=== PATIENT | female | born 1930 | race Caucasian/White ===

== ENCOUNTER 2016-12-24 18:04 | Inpatient (IN) | payer MEDICARE, MEDICAID ==
[~2016-12-24] VITALS: Ht 152.4 cm; Wt 68.2 kg
[~2016-12-24 18:04] MED LIST: ADV10050 INH; AMLO5TAB4 PO; ASPI-465 PO; ATEN50TA PO; BISA-57 PO; DOCU-144 PO; ERGO500014 PO; FLUT16SP24 NASAL; HYDR-3498 PO; MECL-77 PO; OLME40TA14 PO; ONDA4TAB8 PO; PANT40TA3 PO; PREG50CA PO; SENN-36 PO; TRAM-40 PO; ZOLP10TA PO
[2016-12-24 18:20] VITALS: Ht 152.4 cm; Wt 68.2 kg
[2016-12-24] MEDS ORDERED: morphine 4 MG/ML VIAL IV STA (18:21)
[2016-12-24] MEDS ORDERED: ONDANSETRON 4 MG INJ IV STA (18:21)
[2016-12-24] MEDS ORDERED: FURO40TA4 PO (18:39)
[2016-12-24] MEDS ORDERED: PANT40TA4 PO (18:39)
[2016-12-24] MEDS ORDERED: CELE200C PO (18:40)
[2016-12-24] MEDS ORDERED: HYDR-906 PO (18:40)
[2016-12-24] MEDS ORDERED: IRBE150T21 PO (18:40)
[2016-12-24] MEDS ORDERED: CLON-379 PO (18:41)
[2016-12-24] MEDS ORDERED: PREG50CA PO (18:41)
[2016-12-24] MEDS ORDERED: ZOLP10TA5 PO (18:42)
[2016-12-24] MEDS ORDERED: MECL-77 PO (18:42)
[2016-12-24] MEDS ORDERED: MAXZ25 PO (18:43)
[2016-12-24] MEDS ORDERED: ERGO500037 PO (18:43)
[2016-12-24] MEDS ORDERED: ATEN50TA PO (18:44)
[2016-12-24] MEDS ORDERED: ASPI-664 PO (18:44)
[2016-12-24 19:00] LABS: ADD SCAN DIFF NO
[2016-12-24 19:05] LABS: BASOPHILS % 0.7 % (0.0-2.0); EOSINOPHILS # 0.1 10^3/ul (0.0-0.5); EOSINOPHILS % 1.5 % (0.0-7.0); HEMATOCRIT 28.7 % (37.0-47.0); LYMPHOCYTES # 1.1 10^3/ul (0.8-2.9); MEAN CORPUSCULAR HEMOGLOBIN 30.9 pg (29.0-33.0); MEAN CORPUSCULAR HGB CONC 34.8 g/dl (32.0-37.0); MEAN CORPUSCULAR VOLUME 88.6 fl (82.0-101.0); MEAN PLATELET VOLUME 10.4 fl (7.4-10.4); MONOCYTE # 0.6 10^3/ul (0.3-0.9); MONOCYTES % 10.3 % (0.0-11.0); NEUTROPHILS % 68.3 % (39.0-77.0); PLATELET COUNT 201 10^3/UL (140-415); RED BLOOD COUNT 3.24 10^6/ul (4.20-5.40); RED CELL DISTRIBUTION WIDTH 11.6 % (11.5-14.5); WHITE BLOOD COUNT 5.8 10^3/ul (4.8-10.8)
[2016-12-24 19:16] LABS: POTASSIUM 4.2 mmol/L (3.5-5.1)
[2016-12-24 19:18] LABS: CREATININE 1.29 mg/dl (0.44-1.00)
[2016-12-24 19:19] LABS: ALBUMIN/GLOBULIN RATIO 1.29; BILIRUBIN,INDIRECT 0.4 mg/dl (0-1.1); BILIRUBIN,TOTAL 0.4 mg/dl (0.2-1.3); CALCIUM 9.2 mg/dl (8.4-10.2); TOTAL PROTEIN 7.1 g/dl (6.1-8.1)
[2016-12-24 20:05] LABS: ADD UMIC NO; URINE BILIRUBIN (Dip) NEGATIVE (NEGATIVE); URINE BLOOD (Dip) NEGATIVE (NEGATIVE); URINE COLOR LT. YELLOW (YELLOW); URINE GLUCOSE (Dip) NEGATIVE (NEGATIVE); URINE KETONES (Dip) NEGATIVE (NEGATIVE); URINE LEUKOCYTE ESTERASE (Dip) NEGATIVE (NEGATIVE); URINE NITRITE (Dip) NEGATIVE (NEGATIVE); URINE TOTAL PROTEIN (Dip) NEGATIVE (NEGATIVE); URINE UROBILINOGEN (Dip) 0.2 E.U./dL (0.1-1.0)
--- NOTE | 2016-12-24 20:30 | RADRPT ---
PROCEDURE: CT of the lower extremity without contrast CLINICAL INDICATION: Left hip pain. TECHNIQUE: CT of the left hip is performed from the anterior superior iliac spine through the mid femoral shaft at 2.5 mm sections without intravenous contrast. Coronal and sagittal reformatted val ges are submitted. CTDI = 18.36 mGy; DLP = 556.65 mGy-cm COMPARISON: None available FINDINGS: Osseous structures: Bone mineralization is decreased concerning for osteoporosis. There is no christiano ical irregularity or abnormal lucency to suggest an acute displaced fracture. Moderate narrowing of the superior aspect of the left hip joint is present consistent with osteoarthrosis with a somewhat osteophyte formation of the superior lateral left acetabulum. The femoral head is normal in contou r without avascular necrosis, erosion or subluxation. The visualized pubic symphysis shows mild chr onic-appearing osteitis pubis. Soft tissues: The colon 5 musculature is within limits of normal, no intramuscular hematoma is pres ent. The subcutaneous tissues are unremarkable. No joint effusion is identified. The visualized i ntrapelvic structures are remarkable for uterine atrophy, the urinary bladder is unremarkable. Mild atherosclerotic calcification of the common femoral artery is present. RPTAT:HJJR IMPRESSION: 1. No evidence of fracture or dislocation involving the left hip. 2. Moderate left hip osteoarthrosis. 3. Demineralization unable to exclude osteoporosis. 4. Mild chronic-appearing osteitis pubis. 5. No soft tissue abnormality identified. Physician Chavo Date Time Electronically viewed and signed by Physician Chavo on 12/24/2016 20:30 /
[2016-12-24] MEDS ORDERED: SOD CHLORIDE 0.45% 1,000 ML IV SCH (21:12)
--- NOTE | 2016-12-24 21:24 | ERA ---
ER Documentation Chief Complaint Date/Time DATE: 12/24/16 TIME: 21:23 Chief Complaint BIB [facility] FOR EVAL OF LOWER BACK PAIN. HPI 83-year-old female with history of hypertension, asthma, osteoarthritis, hyponatremia, CHF, lumbar compression fracture and chronic pain brought to the ED via rescue and was home complaining of a three-week history of worsening, sharp, nonradiating left hip pain exacerbated by movement. Pain is unrelieved by multiple analgesics including [place]. Denies new trauma or injury. No chest pain or palpitations. No shortness of breath or cough. Mild, crampy generalized , nonradiating abdominal pain and constipation but no nausea, vomiting or diarrhea. No dysuria, polyuria or flank pain. No headache, weakness, focal weakness or numbness. No fevers or chills. ROS All systems reviewed and are negative except as per history of present illness. Medications Home Meds Reported Medications Atenolol* (Atenolol*) 50 Mg Tablet, 50 MG PO DAILY, #30 TAB 12/24/16 Aspirin* (Aspirin* EC) 81 Mg Tablet.dr, 81 MG PO DAILY, TAB 12/24/16 Ergocalciferol (Vitamin D2) (VITAMIN D2) 50,000 Unit Capsule, 02417 UNIT PO Q7D , CAP 12/24/16 Triamterene/Hctz* (Maxzide (37.5-25)*) 1 Each Tablet, 1 EACH PO DAILY, #30 TAB 12/24/16 Meclizine Hcl* (Meclizine Hcl*) 25 Mg Tablet, 25 MG PO Q8H Y for DIZZINESS, TAB 12/24/16 Zolpidem Tartrate* (Zolpidem Tartrate*) 10 Mg Tablet, 10 MG PO QHS Y for INSOMNIA, #30 TAB 12/24/16 Clonidine Hcl* (Clonidine Hcl*) 0.1 Mg Tab, 0.1 MG PO BID, TAB 12/24/16 Pregabalin* (Lyrica*) 50 Mg Capsule, 50 MG PO BID, CAP 12/24/16 Hydrocodone/Acetaminophen (Amboy 5-325 Tablet) 1 Each Tablet, 1 EACH PO BID, TAB 12/24/16 Celecoxib* (Celebrex*) 200 Mg Capsule, 200 MG PO DAILY, CAP 12/24/16 Irbesartan* (Irbesartan*) 150 Mg Tablet, 150 MG PO DAILY, TAB 12/24/16 Pantoprazole* (Pantoprazole*) 40 Mg Tablet.dr, 40 MG PO AC BREAKFAST, TAB 12/24/16 Furosemide* (Furosemide*) 40 Mg Tablet, 40 MG PO DAILY, TAB 12/24/16 Discontinued Reported Medications Fluticasone Propionate* (Flonase* Nasal) 50 Mcg/[place] - 16 Gm [place].susp, 1 SPRAY NASAL BID QHS, SPRAY (TO EACH NOSTRIL) 06/06/14 Olmesartan Medoxomil (Benicar) 40 Mg Tablet, 40 MG PO DAILY, TAB 06/06/14 Ergocalciferol* (Drisdol* (Vitamin D2)) 50,000 Unit Capsule, 67059 UNIT PO Q7D, CAP 06/06/14 Ondansetron Hcl* (Zofran*) 4 Mg Tablet, 4 MG PO Q6H Y for NAUSEA, TAB 06/06/14 Pantoprazole* (Protonix*) 40 Mg Tablet.dr, 40 MG PO DAILY, TAB 06/06/14 Meclizine Hcl* (Meclizine Hcl*) 25 Mg Tablet, 25 MG PO TID, TAB 06/06/14 Pregabalin* (Lyrica*) 50 Mg Capsule, 50 MG PO BID, CAP 06/06/14 Hydrocodone Bit-Acetaminophen* (Amboy*) 5-325 Mg Tab, 1-2 TAB PO Q6 Y for PAIN, TAB 06/06/14 Tramadol Hcl* (Ultram*) 50 Mg Tablet, 50 MG PO Q6H Y for PAIN, TAB 06/06/14 Aspirin (Adult Low Dose Aspirin) 81 Mg Tablet.dr, 81 MG PO DAILY 02/07/12 Salmeterol Xinaf/Fluticasone* (Advair 100/50 Diskus*) 1 Inh Inha, 1 PUFF INH BID 02/07/12 Zolpidem Tartrate* (Ambien*) 10 Mg Tablet, 10 MG PO HS 02/07/12 Atenolol* (Atenolol*) 50 Mg Tablet, 50 MG PO DAILY 02/07/12 Discontinued Scripts Amlodipine Besylate* (Norvasc*) 5 Mg Tablet, 5 MG PO BID for 30 Days, TAB Prov:SUZI GARZA 06/11/14 Bisacodyl* (Dulcolax*) 5 Mg Tablet.dr, 10 MG PO DAILY Y for CONSTIPATION for 30 Days, TAB Prov:SUZI GARZA F. 06/11/14 Sennosides* (Senokot*) 1 Tab Tab, 2 TAB PO DAILY Y for CONSTIPATION for 30 Days Prov:SUZI GARZA. 06/11/14 Docusate Sodium* (Colace*) 100 Mg Cap, 100 MG PO Q12H for 30 Days Prov:SUZI GARZA F. 06/11/14 Allergies Allergies: Coded Allergies: No Known Allergy (Unverified , 12/24/16) PMhx/Soc Reviewed in chart. As per HPI. History of Surgery: Yes ((B) knee surg, nose sx) Anesthesia Reaction: No Hx Respiratory Disorders: Yes (ASTHMA) Hx Cardiac Disorders: No Hx Psychiatric Problems: No Hx Miscellaneous Medical Probl: Yes (asthma,HTN, L1 compression fracture) Hx Alcohol Use: No Hx Substance Use: No Hx Tobacco Use: Yes FmHx As per previous admission 06/06 2014 no stroke or cancer. Physical Exam Vitals Vital Signs Date Time Temp Pulse Resp B/P Pulse Ox O2 Delivery O2 Flow Rate FiO2 12/24/16 19:00 65 16 136/44 99 Room Air 12/24/16 18:20 97.5 74 19 143/54 99 Physical Exam Const: Alert, elderly in moderate to severe distress due to pain Head: Atraumatic Eyes: Normal Conjunctiva ENT: Normal External Ears, Nose and Mouth. Neck: Full range of motion. Nontender for range of motion. Resp: Breath sounds are equal and Clear to auscultation bilaterally Cardio: Regular rate and rhythm, no murmurs Abd: Soft, obese, non tender, non distended. Normal bowel sounds. No rebound or guarding. No masses or normal pulsations. Skin: No petechiae or rashes Back: Diffuse lumbar tenderness but no midline bony tenderness or step-off. No CVA tenderness Ext: Left lower extremity: Buttock and hip tenderness but no deformity. Passive range of motion is normal with pain. No knee or ankle swelling or tenderness. No cyanosis, or edema Neur: Awake and alert. Cranial nerves II through XII are grossly intact. No focal deficit observed. Psych: Patient appears anxious but not depressed. Result Diagram: 4/10/17 0610 12/26/16 0610 Results 24 hrs Laboratory Tests Test 12/24/16 18:55 12/24/16 19:40 White Blood Count 5.810^3/ul Red Blood Count 3.2410^6/ul Hemoglobin 10.0g/dl Hematocrit 28.7% Mean Corpuscular Volume 88.6fl Mean Corpuscular Hemoglobin 30.9pg Mean Corpuscular Hemoglobin Concent 34.8g/dl Red Cell Distribution Width 11.6% Platelet Count 60792^3/UL Mean Platelet Volume 10.4fl Neutrophils % 68.3% Lymphocytes % 19.0% Monocytes % 10.3% Eosinophils % 1.5% Basophils % 0.7% Nucleated Red Blood Cells % 0.0/100WBC Neutrophils # 4.010^3/ul Lymphocytes # 1.110^3/ul Monocytes # 0.610^3/ul Eosinophils # 0.110^3/ul Basophils # 0.010^3/ul Nucleated Red Blood Cells # 0.010^3/ul Sodium Level 118mmol/L Potassium Level 4.2mmol/L Chloride Level 82mmol/L Carbon Dioxide Level 24mmol/L Anion Gap 16 Blood Urea Nitrogen 35mg/dl Creatinine 1.29mg/dl Glucose Level 131mg/dl Osmolality 256mOsm/kg Calcium Level 9.2mg/dl Magnesium Level 2.4mg/dl Total Bilirubin 0.4mg/dl Direct Bilirubin 0.00mg/dl Indirect Bilirubin 0.4mg/dl Aspartate Amino Transf (AST/SGOT) 29IU/L Alanine Aminotransferase (ALT/SGPT) 17IU/L Alkaline Phosphatase 64IU/L Total Protein 7.1g/dl Albumin 4.0g/dl Globulin 3.10g/dl Albumin/Globulin Ratio 1.29 Urine Color LT. YELLOW Urine Clarity CLEAR Urine pH 5.5 Urine Specific [place] 1.010 Urine Ketones NEGATIVE Urine Nitrite NEGATIVE Urine Bilirubin NEGATIVE Urine Urobilinogen 0.2 E.U./dL Urine Leukocyte Esterase NEGATIVE Urine Hemoglobin NEGATIVE Urine Osmolality 248mOsm/kg Urine Random Sodium 25mmol/L Urine Glucose NEGATIVE% Urine Total Protein NEGATIVE Current Medications Medications (Trade) Dose Ordered Sig/Tanika Route PRN Reason Start Time Stop Time Status Last Admin Dose Admin Morphine Sulfate (morphine) 4 mg ONCE STAT IV 12/24/16 18:21 12/24/16 18:24 DC 12/24/16 19:04 Ondansetron HCl 4 mg 4 mg ONCE STAT IV 12/24/16 18:21 12/24/16 18:24 DC 12/24/16 19:04 Sodium Chloride (1/2 NS) 1,000 ml @ 60 mls/hr [id number] IV 12/24/16 21:12 12/25/16 13:15 DC 12/24/16 22:09 PROCEDURE: CT of the lower extremity without contrast CLINICAL INDICATION: Left hip pain. TECHNIQUE: CT of the left hip is performed from the anterior superior iliac spine through the mid femoral shaft at 2.5 mm sections without intravenous contrast. Coronal and sagittal reformatted images are submitted. CTDI = 18.36 mGy; DLP = 556.65 mGy-cm COMPARISON: None available FINDINGS: Osseous structures: Bone mineralization is decreased concerning for osteoporosis. There is no cortical irregularity or abnormal lucency to suggest an acute displaced fracture. Moderate narrowing of the superior aspect of the left hip joint is present consistent with osteoarthrosis with a somewhat osteophyte formation of the superior lateral left acetabulum. The femoral head is normal in contour without avascular necrosis, erosion or subluxation. The visualized pubic symphysis shows mild chronic-appearing osteitis pubis. Soft tissues: The colon 5 musculature is within limits of normal, no intramuscular hematoma is present. The subcutaneous tissues are unremarkable. No joint effusion is identified. The visualized intrapelvic structures are remarkable for uterine atrophy, the urinary bladder is unremarkable. Mild atherosclerotic calcification of the common femoral artery is present. RPTAT:HJJR IMPRESSION: 1. No evidence of fracture or dislocation involving the left hip. 2. Moderate left hip osteoarthrosis. 3. Demineralization unable to exclude osteoporosis. 4. Mild chronic-appearing osteitis pubis. 5. No soft tissue abnormality identified. Physician Chavo Date Time Electronically viewed and signed by Physician Chavo on 12/24/2016 20:30 JR/ Procedures/MDM DOCUMENTS REVIEWED: ED nurse, prior ED, prior records including an admission May 2014 history and physical, ED summary, progress notes and discharge summary. ED COURSE: Morphine 4 mg/Zofran 4 mg IV REEXAMINATION/REEVALUATION: Time: 19:20. Pain diminished but still severe with range of motion [employer]KIN-year-old female with history of hypertension, asthma, osteoarthritis, hyponatremia, CHF, lumbar compression fracture and chronic pain brought to the ED via rescue and was home complaining of a three- week history of worsening, sharp, nonradiating left hip pain exacerbated by movement. Patient with severe hyponatremia and sodium of 118 but no altered mental status or seizures. Hypertonic saline not indicated. History of same with extensive workup during an admission in May 2014 and was found to be due to dehydration improved with hydration. Urine sodium is pending. Fluid restriction and half normal saline at 60 mL per hour initiated. Chronic renal insufficiency with BUN/creatinine slightly worse in May 2014. Acute on chronic intractable left hip pain secondary to osteoarthritis. CT scan negative for occult fracture, occult malignancy or osteomyelitis. on CAT scan. Chronic back pain without neurologic symptoms, urinary disruption, signs of cauda equina or spinal epidural abscess. Chronic abdominal pain likely secondary to opioid induced constipation. No vomiting or signs of bowel obstruction. Exam is unremarkable for significant tenderness, rebound, guarding or signs of peritonitis. No risk factors for mesenteric ischemia. An occult malignancy is considered. Advanced imaging not indicated at this point. Patient will be admitted for pain control, fluid restriction, further evaluation and management. Counseled patient regarding diagnosis, diagnostic results and plan for admission. CALLS/CONSULTS: Time 21:00, Dr. Bonner, Recommends admission to [facility]. PATIENT CARE TRANSITIONED: Time: 21:00, Dr. Bonner. Departure Diagnosis: Primary Impression: Intractable pain Additional Impressions: Hyponatremia Osteoarthritis Qualified Code: M16.9 - Osteoarthritis of hip, unspecified laterality, unspecified osteoarthritis type Essential hypertension AISSATOU BAUM MD Dec 24, 2016 21:24 5. No soft tissue abnormality identified. Physician Chavo Date Time Electronically viewed and signed by Physician Chavo on 12/24/2016 20:30 JR/ Procedures/MDM DOCUMENTS REVIEWED: ED nurse, prior ED, prior records including an admission May 2014 history and physical, ED summary, progress notes and discharge summary. ED COURSE: Morphine 4 mg/Zofran 4 mg IV REEXAMINATION/REEVALUATION: Time: 19:20. Pain diminished but still severe with range of motion [employer] MAKIN-year-old female with history of hypertension, asthma, osteoarthritis, hyponatremia, CHF, lumbar compression fracture and chronic pain brought to the ED via rescue and was home complaining of a three- week history of worsening, sharp, nonradiating left hip pain exacerbated by movement. Patient with severe hyponatremia and sodium of 118 but no altered mental status or seizures. History of same with extensive workup during an admission in May 2014 and was found to be due to dehydration improved with hydration. Urine sodium is pending. Half normal saline at 60 mL per hour initiated. Chronic renal insufficiency with BUN/creatinine slightly worse in May 2014. Patient with acute on chronic intractable left hip pain secondary to osteoarthritis. No radiographic evidence of occult fracture on CAT scan. No signs of an occult malignancy or osteomyelitis. Chronic back pain without neurologic symptoms, urinary disruption, signs of cauda equina or spinal epidural abscess. Or evidence of cauda equina. Patient will be admitted for pain control, IV hydration, further evaluation and management. Counseled patient regarding diagnosis, diagnostic results and plan for admission. CALLS/CONSULTS: Time 21:00, Dr. Bonner, Recommends admission to [facility]. PATIENT CARE TRANSITIONED: Time: 21:00, Dr. Bonner. AISSATOU BAUM MD Dec 24, 2016 21:24
[2016-12-24] MEDS ORDERED: ACETAMINOPHEN 325 MG TAB PO PRN (21:30)
[2016-12-24] MEDS ORDERED: NACL 0.9% 3 ML SYG IV SCH (21:30)
[2016-12-24] MEDS ORDERED: NITROGLYCERIN (SL) 0.4 MG TAB SL PRN (21:30)
[2016-12-24] MEDS ORDERED: HYDROCODONE/APAP (5/325) TAB PO PRN (21:30)
--- NOTE | 2016-12-24 21:30 | HP ---
Date/Time of Note Date/Time of Note DATE: 12/24/16 TIME: 21:30 Assessment/Plan VTE Prophylaxis VTE Prophylaxis Intervention: anti-embolic stocking Assessment/Plan Assessment/Plan 1) Hyponatremia, unknown if acute or chronic, other than patient is not obtunded and able to speak normally and answers some questions. Patient with severe hyponatremia and sodium of 118 but no altered mental status or seizures. History of same, only Na+ ranged from 130 to 133, with extensive workup during an admission in May 2014 and was found to be due to dehydration improved with hydration. Urine sodium is pending - Admit to Med-Surg - Fluid Restriction to 1500 cc/day - Hold Triamterene/HCTZ (home medication) - /2 NS at 60 mL/hr - Check electrolytes at 2 am - Add onto current labs: Uric Acid, Pre-albumin - AM Labs: CBC, BMP, CHD profile - to check specifically for hyperlipidemia that may affect the sodium concentration - Consider Nephrology Consult 2) Pre-renal Azotemia, Chronic since 05/2014 and mild Renal Insufficiency, unknown if chronic or acute. No evidence of chronic renal insufficiency as her Creatinine was 0.80 in 01/2012 and 1.00 in 05/2014, and in that interval, her max creatinine was 1.52, and her BUN was 10 in 05/2012 to 15 in 05/2014, her last recorded BUN before today. - Gentle hydration as above 3) Abdominal Pain, possibly acute - KUB and Upright in AM - CALISTA done by me in ER, sent for Occult Blood, but no visible blood or melena - Try Magnesium Citrate once 2V Abdomen rules out acute process and confirms FOS 4) Chronic Pain with regular Opioid use, Hydrocodone-APAP 5-325 BID at home. Patient with acute on chronic intractable left hip pain secondary to osteoarthritis. No radiographic evidence of occult fracture on CAT scan. No signs of an occult malignancy or osteomyelitis. Chronic back pain without neurologic symptoms, urinary disruption, signs of cauda equina or spinal epidural abscess. Or evidence of cauda equina. - Consider constipation from chronic narcotic use. Small amount of stool that passed may be from soft/liquid that passed the constipated areas, but no significant stool in vault. 5) Anemia, Normochromic, Normocytic, Chronic. Normal RDW. - Consider getting a peripheral smear to look for abnormal cells. Thalassemia? but they tend to be microcytic/hypochromic but do not respond to iron - Stool Occult Blood Card sent to lab after CALISTA done by me. HPI/ROS Admit Date/Time Admit Date/Time 12/24/162111 Hx of Present Illness History as obtained from ER Physician: 83-year-old female with history of hypertension, asthma, osteoarthritis, hyponatremia, CHF, lumbar compression fracture and chronic pain brought to the ED via rescue and was home complaining of a three-week history of worsening, sharp, nonradiating left hip pain exacerbated by movement. Pain is unrelieved by multiple analgesics including [place]. Denies new trauma or injury. No chest pain or palpitations. No shortness of breath or cough. No abdominal pain, nausea, vomiting, diarrhea or constipation. No dysuria, polyuria or flank pain. No headache, weakness, focal weakness or numbness. No fevers or chills. However, when I speak to patient, she tells me about pain in her lower abdomen, and through [employer], live [employer], patient states that she wanted to have a BM today, but after just a little came out, it was very painful, and she had to stop. (It was difficult getting that history from her, meaning her answers to my questions were not this succinct.) She also indicated that it did not hurt her to urinate. Does not seem to be complaining of other pains. No cough. No headache. No vomiting. ED COURSE: Morphine 4 mg/Zofran 4 mg IV ROS Minimal ROS obtained directly from patient, partially due to language barrier, and partially due to dementia or confusion. See HPI for any additional ROS from family and/or EMS. PMH/Family/Social Past Medical History Asthma; HTN; L1 Compression Fracture; Osteoarthritis; Hyponatremia (drake 130, previously); CHF; Chronic Pain Past Surgical History Knee Surgery - bilateral; Nose Surgery Family History Significant Family History: other (As per previous admission 06/06 2014 no stroke or cancer.) Social History Smoking Status: Unknown if ever smoked Exam/Review of Systems Vital Signs Vitals Vital Signs Date Time Temp Pulse Resp B/P Pulse Ox O2 Delivery O2 Flow Rate FiO2 12/24/16 18:20 97.5 74 19 143/54 99 Exam Exam General: Elderly Slovenian-Speaking female who speaks/understands very little Pakistani, resting on gurney. Rouses easily. In no acute distress. Pale, but non- toxic-appearing Eyes: Sclera White, EOMI HENT: Normocephalic/Atraumatic, External Ears/Nose Normal, Moist Mucus Membranes Neck: Supple, Trachea Midline Cardiovascular: Normal Rate, Regular Rhythm, Normal S1 and S2, No Murmur, No Extra Sounds. Radial pulse +2/4. No pedal Edema. Pulmonary: Clear to Auscultation Bilaterally, Normal Respiratory Effort, No Rales, Rhonchi or Wheezes Gastrointestinal: Normoactive Bowel Sounds, Soft, Lower abdominal tenderness. No guarding or rebound. Non-Distended, No Hepatosplenomegaly Appreciated, No Pulsatile Masses. No CVA tenderness on left. Right was not examined as patient was laying on her right side, and her complaint of pain seemed to be on the left side, as well as in her lower abdomen. Rectal: CALISTA performed. Normal external anus. Good sphincter tone. No masses. No palpable stool in vault, but small amount of brown stool on glove sent to lab on card for occult blood test. Urogenital: Deferred Musculoskeletal: Normal Muscle Bulk and Tone Neurological: CN II - XII Grossly Intact, Non-Focal, Speech Normal Integumentary: Normal Moisture and Temperature, Fair Turgor, No Jaundice, No Rash Lymphatic: No Cervical Lymphadenopathy Psychiatric: Appropriate Mood and Affect, Good Eye Contact, but unable to assess further due to language barrier. Labs Result Diagram: 12/24/16185412/24/161854 Medications Medications Home Meds Reported Medications Atenolol* (Atenolol*) 50 Mg Tablet, 50 MG PO DAILY, #30 TAB 12/24/16 Aspirin* (Aspirin* EC) 81 Mg Tablet.dr, 81 MG PO DAILY, TAB 12/24/16 Ergocalciferol (Vitamin D2) (VITAMIN D2) 50,000 Unit Capsule, 23629 UNIT PO Q7D , CAP 12/24/16 Triamterene/Hctz* (Maxzide (37.5-25)*) 1 Each Tablet, 1 EACH PO DAILY, #30 TAB 12/24/16 Meclizine Hcl* (Meclizine Hcl*) 25 Mg Tablet, 25 MG PO Q8H Y for DIZZINESS, TAB 12/24/16 Zolpidem Tartrate* (Zolpidem Tartrate*) 10 Mg Tablet, 10 MG PO QHS Y for INSOMNIA, #30 TAB 12/24/16 Clonidine Hcl* (Clonidine Hcl*) 0.1 Mg Tab, 0.1 MG PO BID, TAB 12/24/16 Pregabalin* (Lyrica*) 50 Mg Capsule, 50 MG PO BID, CAP 12/24/16 Hydrocodone/Acetaminophen ([place] 5-325 Tablet) 1 Each Tablet, 1 EACH PO BID, TAB 12/24/16 Celecoxib* (Celebrex*) 200 Mg Capsule, 200 MG PO DAILY, CAP 12/24/16 Irbesartan* (Irbesartan*) 150 Mg Tablet, 150 MG PO DAILY, TAB 12/24/16 Pantoprazole* (Pantoprazole*) 40 Mg Tablet.dr, 40 MG PO AC BREAKFAST, TAB 12/24/16 Furosemide* (Furosemide*) 40 Mg Tablet, 40 MG PO DAILY, TAB 12/24/16 Discontinued Reported Medications Fluticasone Propionate* (Flonase* Nasal) 50 Mcg/Newell - 16 Gm Newell.susp, 1 SPRAY NASAL BID QHS, SPRAY (TO EACH NOSTRIL) 06/06/14 Olmesartan Medoxomil (Benicar) 40 Mg Tablet, 40 MG PO DAILY, TAB 06/06/14 Ergocalciferol* (Drisdol* (Vitamin D2)) 50,000 Unit Capsule, 57327 UNIT PO Q7D, CAP 06/06/14 Ondansetron Hcl* (Zofran*) 4 Mg Tablet, 4 MG PO Q6H Y for NAUSEA, TAB 06/06/14 Pantoprazole* (Protonix*) 40 Mg Tablet.dr, 40 MG PO DAILY, TAB 06/06/14 Meclizine Hcl* (Meclizine Hcl*) 25 Mg Tablet, 25 MG PO TID, TAB 06/06/14 Pregabalin* (Lyrica*) 50 Mg Capsule, 50 MG PO BID, CAP 06/06/14 Hydrocodone Bit-Acetaminophen* ([place]*) 5-325 Mg Tab, 1-2 TAB PO Q6 Y for PAIN, TAB 06/06/14 Tramadol Hcl* (Ultram*) 50 Mg Tablet, 50 MG PO Q6H Y for PAIN, TAB 06/06/14 Aspirin (Adult Low Dose Aspirin) 81 Mg Tablet.dr, 81 MG PO DAILY 02/07/12 Salmeterol Xinaf/Fluticasone* (Advair 100/50 Diskus*) 1 Inh Inha, 1 PUFF INH BID 02/07/12 Zolpidem Tartrate* (Ambien*) 10 Mg Tablet, 10 MG PO HS 02/07/12 Atenolol* (Atenolol*) 50 Mg Tablet, 50 MG PO DAILY 02/07/12 Discontinued Scripts Amlodipine Besylate* (Norvasc*) 5 Mg Tablet, 5 MG PO BID for 30 Days, TAB Prov:SUZI GARZA F. 06/11/14 Bisacodyl* (Dulcolax*) 5 Mg Tablet.dr, 10 MG PO DAILY Y for CONSTIPATION for 30 Days, TAB Prov:SUZI GARZA F. 06/11/14 Sennosides* (Senokot*) 1 Tab Tab, 2 TAB PO DAILY Y for CONSTIPATION for 30 Days Prov:SUZI GARZA F. 06/11/14 Docusate Sodium* (Colace*) 100 Mg Cap, 100 MG PO Q12H for 30 Days Prov:SUZI GARZA F. 06/11/14 Current Medications Medications (Trade) Dose Ordered Sig/Tanika Route PRN Reason Start Time Stop Time Status Last Admin Dose Admin Morphine Sulfate (morphine) 4 mg ONCE STAT IV 12/24/16 18:21 12/24/16 18:24 DC 12/24/16 19:04 Ondansetron HCl 4 mg 4 mg ONCE STAT IV 12/24/16 18:21 12/24/16 18:24 DC 12/24/16 19:04 Sodium Chloride (1/2 NS) 1,000 ml @ 60 mls/hr [id number] IV 12/24/16 21:12 IV Flush (NS 3 ml) 3 ml PER PROTOCOL IV 12/24/16 21:30 Nitroglycerin (Nitroglycerin (Sl Tab) 0.4 Mg) 1 tab Q5M PRN SL CHEST PAIN 12/24/16 21:30 Acetaminophen (Tylenol Tab) 650 mg Q6H PRN PO PAIN LEVEL 1-3 OR FEVER 12/24/16 21:30 Acetaminophen/ Hydrocodone Bitart ([place] (5/325)) 1 tab Q6H PRN PO PAIN LEVEL 4-6 12/24/16 21:30 Acetaminophen/ Hydrocodone Bitart ([place] (5/325)) 2 tab Q6H PRN PO PAIN LEVEL 7-10 12/24/16 21:30 Aspirin (Halfprin) 81 mg DAILY PO 12/25/16 09:00 Atenolol (Tenormin) 50 mg DAILY PO 12/25/16 09:00 Celecoxib (Celebrex) 200 mg DAILY PO 12/25/16 09:00 Clonidine (Catapres) 0.1 mg BID PO 12/24/16 21:30 Miscellaneous Information 150 mg DAILY PO 12/25/16 09:00 UNV Procedures Procedures Laboratory Tests Test 12/24/16 18:55 12/24/16 19:40 White Blood Count 5.810^3/ul Red Blood Count 3.2410^6/ul Hemoglobin 10.0g/dl Hematocrit 28.7% Mean Corpuscular Volume 88.6fl Mean Corpuscular Hemoglobin 30.9pg Mean Corpuscular Hemoglobin Concent 34.8g/dl Red Cell Distribution Width 11.6% Platelet Count 13495^3/UL Mean Platelet Volume 10.4fl Neutrophils % 68.3% Lymphocytes % 19.0% Monocytes % 10.3% Eosinophils % 1.5% Basophils % 0.7% Nucleated Red Blood Cells % 0.0/100WBC Neutrophils # 4.010^3/ul Lymphocytes # 1.110^3/ul Monocytes # 0.610^3/ul Eosinophils # 0.110^3/ul Basophils # 0.010^3/ul Nucleated Red Blood Cells # 0.010^3/ul Sodium Level 118mmol/L Potassium Level 4.2mmol/L Chloride Level 82mmol/L Carbon Dioxide Level 24mmol/L Anion Gap 16 Blood Urea Nitrogen 35mg/dl Creatinine 1.29mg/dl Glucose Level 131mg/dl Calcium Level 9.2mg/dl Total Bilirubin 0.4mg/dl Direct Bilirubin 0.00mg/dl Indirect Bilirubin 0.4mg/dl Aspartate Amino Transf (AST/SGOT) 29IU/L Alanine Aminotransferase (ALT/SGPT) 17IU/L Alkaline Phosphatase 64IU/L Total Protein 7.1g/dl Albumin 4.0g/dl Globulin 3.10g/dl Albumin/Globulin Ratio 1.29 Urine Color LT. YELLOW Urine Clarity CLEAR Urine pH 5.5 Urine Specific [place] 1.010 Urine Ketones NEGATIVE Urine Nitrite NEGATIVE Urine Bilirubin NEGATIVE Urine Urobilinogen 0.2 E.U./dL Urine Leukocyte Esterase NEGATIVE Urine Hemoglobin NEGATIVE Urine Random Sodium 25mmol/L Urine Glucose NEGATIVE% Urine Total Protein NEGATIVE PROCEDURE: CT of the lower extremity without contrast CLINICAL INDICATION: Left hip pain. COMPARISON: None available FINDINGS: Osseous structures: Bone mineralization is decreased concerning for osteoporosis. There is no cortical irregularity or abnormal lucency to suggest an acute displaced fracture. Moderate narrowing of the superior aspect of the left hip joint is present consistent with osteoarthrosis with a somewhat osteophyte formation of the superior lateral left acetabulum. The femoral head is normal in contour without avascular necrosis, erosion or subluxation. The visualized pubic symphysis shows mild chronic-appearing osteitis pubis. Soft tissues: The colon 5 musculature is within limits of normal, no intramuscular hematoma is present. The subcutaneous tissues are unremarkable. No joint effusion is identified. The visualized intrapelvic structures are remarkable for uterine atrophy, the urinary bladder is unremarkable. Mild atherosclerotic calcification of the common femoral artery is present. IMPRESSION: 1. No evidence of fracture or dislocation involving the left hip. 2. Moderate left hip osteoarthrosis. 3. Demineralization unable to exclude osteoporosis. 4. Mild chronic-appearing osteitis pubis. 5. No soft tissue abnormality identified. BREONNA UNDERWOOD DO Dec 24, 2016 21:30 is normal in contour without avascular necrosis, erosion or subluxation. The visualized pubic symphysis shows mild chronic-appearing osteitis pubis. Soft tissues: The colon 5 musculature is within limits of normal, no intramuscular hematoma is present. The subcutaneous tissues are unremarkable. No joint effusion is identified. The visualized intrapelvic structures are remarkable for uterine atrophy, the urinary bladder is unremarkable. Mild atherosclerotic calcification of the common femoral artery is present.
[2016-12-24 23:55] VITALS: TEMP 98
[2016-12-25] VITALS (10 sets, daily range): BP systolic 104–124; BP diastolic 49–62; PULSE 60–67; RESP 15–19
[2016-12-25 02:21] LABS: POTASSIUM 4.4 mmol/L (3.5-5.1)
[2016-12-25] MEDS ORDERED: ALBUTEROL 0.083% (NEB) 2.5 MG/3 ML AMP HHN PRN (05:00)
[2016-12-25 06:47] LABS: ADD SCAN DIFF NO; BASOPHIL # 0.1 10^3/ul (0.0-0.1); BASOPHILS % 0.9 % (0.0-2.0); EOSINOPHILS # 0.2 10^3/ul (0.0-0.5); EOSINOPHILS % 2.9 % (0.0-7.0); HEMATOCRIT 29.9 % (37.0-47.0); HEMOGLOBIN 10.3 g/dl (12.0-16.0); LYMPHOCYTES # 1.7 10^3/ul (0.8-2.9); LYMPHOCYTES % 31.6 % (15.0-51.0); MEAN CORPUSCULAR HEMOGLOBIN 31.1 pg (29.0-33.0); MEAN CORPUSCULAR HGB CONC 34.4 g/dl (32.0-37.0); MEAN CORPUSCULAR VOLUME 90.3 fl (82.0-101.0); MEAN PLATELET VOLUME 10.6 fl (7.4-10.4); MONOCYTE # 0.6 10^3/ul (0.3-0.9); MONOCYTES % 10.8 % (0.0-11.0); NEUTROPHIL # 2.9 10^3/ul (1.6-7.5); NEUTROPHILS % 53.4 % (39.0-77.0); PLATELET COUNT 187 10^3/UL (140-415); RED BLOOD COUNT 3.31 10^6/ul (4.20-5.40); RED CELL DISTRIBUTION WIDTH 11.6 % (11.5-14.5); WHITE BLOOD COUNT 5.5 10^3/ul (4.8-10.8)
[2016-12-25 06:57] LABS: POTASSIUM 3.9 mmol/L (3.5-5.1)
[2016-12-25 06:59] LABS: URIC ACID 7.5 mg/dl (3.1-7.9)
[2016-12-25 07:00] LABS: CHOL/HDL RATIO 2.6 RATIO
[2016-12-25 07:07] LABS: PREALBUMIN 17.7 mg/dl (17.6-36.0)
[2016-12-25 07:22] LABS: CALCIUM 8.8 mg/dl (8.4-10.2)
[2016-12-25] MEDS: ASPIRIN (EC) 81 MG TAB PO SCH (08:11)
[2016-12-25] MEDS: HYDROCODONE/APAP (5/325) TAB PO PRN ×2 (08:11→14:23)
[2016-12-25] MEDS: ALBUTEROL/IPRATROPIUM (NEB) 3 ML AMP HHN SCH ×3 (08:17→21:13)
[2016-12-25] MEDS ORDERED: NON-FORMULARY/PATIENT OWN MED (Irbesartan* 150 MG) PO SCH (09:00)
[2016-12-25] MEDS ORDERED: CELECOXIB 200 MG CAP PO SCH (09:00)
[2016-12-25] MEDS: LOSARTAN 50 MG TAB PO SCH (09:00)
[2016-12-25] MEDS ORDERED: ATENOLOL 50 MG TAB PO SCH (09:00)
[2016-12-25] MEDS: DOCUSATE SODIUM 100 MG CAP PO PRN (10:44)
[2016-12-25] MEDS ORDERED: POLYETHYLENE GLYCOL 17 GM PACKET PO PRN (12:00)
[2016-12-25] MEDS ORDERED: FUROSEMIDE 20 MG INJ IV SCH (13:00)
[2016-12-25] MEDS ORDERED: traMADol 50 MG TAB GTB PRN (13:00)
[2016-12-25] MEDS ORDERED: BISACODYL 10 MG SUPP PR PRN (13:00)
--- NOTE | 2016-12-25 13:58 | RADRPT ---
PROCEDURE: XR Abdomen. CLINICAL INDICATION: Abdominal pain TECHNIQUE: Single AP view of the abdomen is available for review. COMPARISON: None. FINDINGS: The bowel gas pattern is normal. There is no evidence of obstruction. There are no abnormal calcifications overlying the urinary tracts. No free air identified. The osseous structures demonstrate moderate degenerative change in the visualized thoracic and lumba r spine.. IMPRESSION: 1. No evidence of bowel obstruction, perforation or radiopaque calculi overlying the urinary tracts . RPTAT: AA .Lee Camacho MD, MD Date Time Electronically viewed and signed by .Lee Camacho MD, MD on 12/25/2016 13:57 .M/
--- NOTE | 2016-12-25 14:56 | PN ---
Date/Time of Note Date/Time of Note DATE: 12/25/16 TIME: 14:51 Assessment/Plan VTE Prophylaxis VTE Prophylaxis Intervention: SCD's Lines/Catheters IV Catheter Type (from Nrs): Peripheral IV Assessment/Plan Chief Complaint/Hosp Course Assessment/Plan 1) Hyponatremia, likely chronic, likely secondary to meds Has been placed on fluid Restriction to 1500 cc/day Continue to hold Triamterene/HCTZ (home medication) Nephrology has been consulted, discontinued 3% IV fluid place the patient on normal saline. Follow up electrolytes in a.m. 2) Pre-renal Azotemia, Continue gentle hydration as above 3) Abdominal Pain, possibly acute Senior Clinical [employer] Programmer has been consulted, 4) Chronic Pain with regular Opioid use, Hydrocodone-APAP 5-325 BID at home. No radiographic evidence of occult fracture on CAT scan. No signs of an occult malignancy or osteomyelitis. Chronic back pain without neurologic symptoms, urinary disruption, signs of cauda equina or spinal epidural abscess. Or evidence of cauda equina. 5) Anemia, Normochromic, Normocytic, Chronic. Normal RDW. Positive stool guaiac, continue to monitor, wood stock blank handler been consulted 6) essential hypertension, well-controlled on medical management, hold hydrochlorothiazide secondary to hyponatremia DVT prophylaxis on SCD GI prophylaxis and PPI Problems: Subjective 24 Hr Interval Summary Free Text/Dictation Patient denies any chest pain or shortness of breath Minimal appetite Lower extremity edema Exam/Review of Systems Vital Signs Vitals Vital Signs Date Time Temp Pulse Resp B/P Pulse Ox O2 Delivery O2 Flow Rate FiO2 12/25/16 13:04 88 20 98 21 12/25/16 11:30 97.9 124/57 12/24/16 23:55 Room Air Intake and Output 12/24/16 12/24/16 12/25/16 15:00 23:00 07:00 Intake Total 330 ml Output Total 300 ml Balance 30 ml Exam General: The patient is moderately overweight, Not in acute distress. HEENT: Atraumatic, normocephalic. The pupils are equal and round . Neck: Supple with full range of motion. Chest: Normal expansion of the thorax during inspiration Lungs: Clear to auscultation bilaterally Heart: Normal S1-S2, Regular rhythm and rate. Abdomen: Soft , nontender, nondistended , bowel sounds are present. Extremities: Normal to inspection, trace edema no cyanosis Neurologic: Normal mental status,The patient is awake, alert Results Result Diagram: 12/25/16 0620 12/25/16 0620 Results 24 hrs Laboratory Tests Test 12/24/16 18:55 12/24/16 19:40 12/24/16 22:10 12/25/16 01:56 White Blood Count 5.8 Red Blood Count 3.24 L Hemoglobin 10.0 L Hematocrit 28.7 L Mean Corpuscular Volume 88.6 Mean Corpuscular Hemoglobin 30.9 Mean Corpuscular Hemoglobin Concent 34.8 Red Cell Distribution Width 11.6 Platelet Count 201 Mean Platelet Volume 10.4 Neutrophils % 68.3 Lymphocytes % 19.0 Monocytes % 10.3 Eosinophils % 1.5 Basophils % 0.7 Nucleated Red Blood Cells % 0.0 Neutrophils # 4.0 Lymphocytes # 1.1 Monocytes # 0.6 Eosinophils # 0.1 Basophils # 0.0 Nucleated Red Blood Cells # 0.0 Sodium Level 118 *L 120 L Potassium Level 4.2 4.4 Chloride Level 82 L 87 L Carbon Dioxide Level 24 25 Anion Gap 16 12 Blood Urea Nitrogen 35 H Creatinine 1.29 H Glucose Level 131 Osmolality 256 L Calcium Level 9.2 Magnesium Level 2.4 Total Bilirubin 0.4 Direct Bilirubin 0.00 Indirect Bilirubin 0.4 Aspartate Amino Transf (AST/SGOT) 29 Alanine Aminotransferase (ALT/SGPT) 17 Alkaline Phosphatase 64 Total Protein 7.1 Albumin 4.0 Globulin 3.10 Albumin/Globulin Ratio 1.29 Urine Color LT. YELLOW Urine Clarity CLEAR Urine pH 5.5 Urine Specific [place] 1.010 Urine Ketones NEGATIVE Urine Nitrite NEGATIVE Urine Bilirubin NEGATIVE Urine Urobilinogen 0.2 E.U./dL Urine Leukocyte Esterase NEGATIVE Urine Hemoglobin NEGATIVE Urine Osmolality 248 L Urine Random Sodium 25 L Urine Glucose NEGATIVE Urine Total Protein NEGATIVE Stool Occult Blood POSITIVE Test 12/25/16 06:20 White Blood Count 5.5 Red Blood Count 3.31 L Hemoglobin 10.3 L Hematocrit 29.9 L Mean Corpuscular Volume 90.3 Mean Corpuscular Hemoglobin 31.1 Mean Corpuscular Hemoglobin Concent 34.4 Red Cell Distribution Width 11.6 Platelet Count 187 Mean Platelet Volume 10.6 H Neutrophils % 53.4 Lymphocytes % 31.6 Monocytes % 10.8 Eosinophils % 2.9 Basophils % 0.9 Nucleated Red Blood Cells % 0.0 Neutrophils # 2.9 Lymphocytes # 1.7 Monocytes # 0.6 Eosinophils # 0.2 Basophils # 0.1 Nucleated Red Blood Cells # 0.0 Sodium Level 120 L Potassium Level 3.9 Chloride Level 87 L Carbon Dioxide Level 27 Anion Gap 10 Blood Urea Nitrogen 28 H Creatinine 1.00 Glucose Level 96 Uric Acid 7.5 Calcium Level 8.8 Prealbumin 17.7 Triglycerides Level 82 Cholesterol Level 230 H LDL Cholesterol, Calculated 127 HDL Cholesterol 87 Cholesterol/HDL Ratio 2.6 Medications Medications Current Medications Nitroglycerin (Nitroglycerin (Sl Tab) 0.4 Mg) 1 tab Q5M PRN SL CHEST PAIN; Start 12/24/16 at 21:30 Acetaminophen (Tylenol Tab) 650 mg Q6H PRN PO PAIN LEVEL 1-3 OR FEVER; Start at 21:30 Acetaminophen/ Hydrocodone Bitart ([place] (5/325)) 1 tab Q6H PRN PO PAIN LEVEL 4 -6 Last administered on 12/25/16 14:23; Admin Dose 1 TAB; Start 12/24/16 at 21:30 Acetaminophen/ Hydrocodone Bitart ([place] (5/325)) 2 tab Q6H PRN PO PAIN LEVEL 7 -10; Start 12/24/16 at 21:30 Aspirin (Halfprin) 81 mg DAILY PO Last administered on 12/25/16 08:11; Admin Dose 81 MG; Start 12/25/16 at 09:00 Clonidine (Catapres) 0.1 mg BID PO Last administered on 12/24/16 22:09; Admin Dose 0.1 MG; Start 12/24/16 at 21:30 Losartan Potassium (Cozaar) 50 mg DAILY PO ; Start 12/25/16 at 09:00 Docusate Sodium (Colace) 100 mg DAILY PRN PO CONSTIPATION Last administered on 12/25/16 10:44; Admin Dose 100 MG; Start 12/25/16 at 10:30 Polyethylene Glycol (Miralax) 17 gm DAILY PRN PO CONSTIPATION; Start 12/25/16 at 12:00 Bisacodyl (Dulcolax Supp) 10 mg DAILY PRN DE CONSTIPATION Last administered on 12/25/16 14:24; Admin Dose 10 MG; Start 12/25/16 at 13:00 Tramadol HCl (Ultram) 50 mg Q6H PRN GTB pain; Start 12/25/16 at 13:00 Furosemide (Lasix) 20 mg Q24H IV Last administered on 12/25/16t 14:24; Admin Dose 20 MG; Start 12/25/16 at 13:00; Stop 12/26/16 at 12:59 Atenolol (Tenormin) 25 mg DAILY PO ; Start 12/26/16 at 09:00 JOSE DANIEL PADILLA MD Dec 25, 2016 14:56
[2016-12-25] MEDS ORDERED: LORAZEPAM 2 MG INJ IV ONE (15:22)
[2016-12-25 15:45] LABS: ADD UMIC YES; URINE BILIRUBIN (Dip) NEGATIVE (NEGATIVE); URINE BLOOD (Dip) TRACE (NEGATIVE); URINE COLOR LT. YELLOW (YELLOW); URINE GLUCOSE (Dip) NEGATIVE (NEGATIVE); URINE KETONES (Dip) NEGATIVE (NEGATIVE); URINE LEUKOCYTE ESTERASE (Dip) NEGATIVE (NEGATIVE); URINE NITRITE (Dip) NEGATIVE (NEGATIVE); URINE TOTAL PROTEIN (Dip) NEGATIVE (NEGATIVE); URINE UROBILINOGEN (Dip) 0.2 E.U./dL (0.1-1.0)
[2016-12-25 15:57] LABS: SQUAMOUS EPITHELIAL CELL,UR FEW; URINE RBCS 0-2 /HPF (0)
--- NOTE | 2016-12-25 16:01 | CONS ---
DATE OF ADMISSION: 12/24/2016 DATE OF CONSULTATION: 12/25/2016 Dear : Thank you for asking me to participate in the care of this 86-year-old para 3, 3 female who has been admitted with chief complaints of abdominal pain and hip pain. The patient has known history of high blood pressure, congestive heart failure, lumbar spine fracture and DJD, and has been on multiple medications including: Atenolol, aspirin, Vitamin D2, hydrochlorothiazide, meclizine, clonidine, Ambien , Lyrica, hydrocodone, Celebrex, irbesartan, Protonix, Lasix and some other p.r.n. medications. The patient has been found to have low sodium of 120 persistently and therefore , nephrology consultation is requested. Please note that additional studies done thus far has revealed white count 5.8, hematocrit 29% range, and admission sodium was 118, BUN 35, creatinine is 1.29, which has since improved to 28 and 1.0 respectively. As mentioned, the sodium improved up to 120 only. The magnesium is normal. Serum osmolarity is 256. Urine osmolarity is 248. Urine sodium 25 and the rest of the UA is negative. The patient has not had a chest x-ray yet. She is complaining of abdominal discomfort and constipation and the last BM was yesterday. REVIEW OF SYSTEMS: Rest of the system review is negative for any excessive vomiting, or diarrhea. The patient has not had any short of breath. No acute abdominal distention, flank pain. No history of polyuria, although the patient has had an in and out catheter which has shown large volume urine. There is no swelling of legs at this time and no fever, chills, or any other metabolic problem. PHYSICAL EXAMINATION: GENERAL: The patient to be elderly, alert female who appears to be complaining and not in any acute distress, however. VITAL SIGNS: Blood pressure is 124/57, heart rate is 62, temperature 97.9, respirations 18. HEAD: Unremarkable. EYES: Pale conjunctivae. Sclerae are anicteric. NOSE: Normal mucosa. THROAT: Tongue is pale. No pharyngeal congestion. NECK: No JVD, lymph or thyroid present. Trachea is midline. CHEST: Symmetrical. BREASTS: Not examined. LUNGS: Clear. HEART: Regular, S1 unremarkable. ABDOMEN: Obese. Liver, spleen, kidneys not felt. GENITALIA: Not examined. EXTREMITIES: Question of trace pitting edema though is not severe. SKIN: Pale. IMPRESSION: 1. Congestive heart failure on thiazide diuretics. 2. Hyponatremia may be related to above. 3. History of hypertension with possible hypertensive cardiovascular disease contributing to above. 4. Degenerative joint disease on Celebrex and pain medication, question of SIADH. 5. Abdominal pain, etiology not clear. PLAN: This patient appears to have multiple medical problems. Renal-anaya, the patient has presented with Pre-renal Azotema and a sodium of 118, which is only improved to 120 while she is getting 3% sodium chloride. Fortunately, Pre-renal Azotemia has resolved. I would like to withhold the 3%Nacl because of the history of congestive heart failure and also since it has not been very effective in the treatment. I would also begin fluid restriction and check out other causes of hyponatremia such as hypothyroidism for which a TSH level requested. I am also requesting a KUB empirically and if necessary, I will carry out further workup accordingly. At this time, we must not administer any more fluids and fluid restriction is the issa here. If above fails, we must resort to the use of [place] which works on the distal tubule and is ideal in such situations. A state of SIADH is the picture and fluid restriction will be most helpful. I will follow the patient's intake, output, blood chemistry closely, and I would like to thank you for this interesting consultation. Dictated By: LIO SERRANO/LAST Conf#: [id number] DID#: [id number] CC: BREONNA UNDERWOOD MD;*EndCC* MTDD
[2016-12-25 18:59] LABS: CREATININE 1.11 mg/dl (0.44-1.00)
[2016-12-26] VITALS (12 sets, daily range): BP systolic 98–119; BP diastolic 48–61; PULSE 56–83; RESP 15–20
--- NOTE | 2016-12-26 06:27 | RADRPT ---
PROCEDURE: XR Chest. CLINICAL INDICATION: CHF TECHNIQUE: A single AP view of the chest was obtained. COMPARISON: None available FINDINGS: Lung volumes are low with compressive changes, vascular crowding and basilar atelectasis. No focal a irspace opacity, pleural effusion or pneumothorax is seen. The cardiomediastinal silhouette is with in normal limits for size. Calcifications are seen within the aortic arch. The osseous structures de monstrate senescent changes. IMPRESSION: 1. Low lung volumes with compressive changes and basilar atelectasis. 2. Aortic atherosclerosis. RPTAT: HH .Tiffany Workman MD, MD Date Time Electronically viewed and signed by .Tiffany Workman MD, on 12/26/2016 06:27 .G/
--- NOTE | 2016-12-26 06:28 | RADRPT ---
PROCEDURE: XR Abdomen. CLINICAL INDICATION: Abdominal pain TECHNIQUE: Two AP views of the abdomen were obtained COMPARISON: None. FINDINGS: There is a nonobstructive bowel gas pattern. No abnormal soft tissue calcifications are seen. The v isualized portions of the lung bases are clear. The osseous structures are unremarkable. IMPRESSION: Unremarkable abdomen x-ray. RPTAT: HH .Tiffany Workman MD, MD Date Time Electronically viewed and signed by .Tiffany Workman MD, on 12/26/2016 06:28 .G/
[2016-12-26 07:37] LABS: ADD SCAN DIFF NO
[2016-12-26 07:43] LABS: BASOPHILS % 0.7 % (0.0-2.0); EOSINOPHILS # 0.2 10^3/ul (0.0-0.5); EOSINOPHILS % 3.5 % (0.0-7.0); HEMATOCRIT 28.4 % (37.0-47.0); HEMOGLOBIN 9.8 g/dl (12.0-16.0); LYMPHOCYTES # 1.6 10^3/ul (0.8-2.9); LYMPHOCYTES % 36.3 % (15.0-51.0); MEAN CORPUSCULAR HGB CONC 34.5 g/dl (32.0-37.0); MEAN CORPUSCULAR VOLUME 89.9 fl (82.0-101.0); MEAN PLATELET VOLUME 10.7 fl (7.4-10.4); MONOCYTE # 0.4 10^3/ul (0.3-0.9); MONOCYTES % 9.7 % (0.0-11.0); NEUTROPHIL # 2.2 10^3/ul (1.6-7.5); NEUTROPHILS % 49.6 % (39.0-77.0); PLATELET COUNT 182 10^3/UL (140-415); RED BLOOD COUNT 3.16 10^6/ul (4.20-5.40); RED CELL DISTRIBUTION WIDTH 11.8 % (11.5-14.5); WHITE BLOOD COUNT 4.5 10^3/ul (4.8-10.8)
[2016-12-26 08:01] LABS: ALBUMIN 3.5 g/dl (3.3-4.9); ALBUMIN/GLOBULIN RATIO 1.25; BILIRUBIN,INDIRECT 0.5 mg/dl (0-1.1); BILIRUBIN,TOTAL 0.5 mg/dl (0.2-1.3); CALCIUM 8.4 mg/dl (8.4-10.2); CREATININE 1.04 mg/dl (0.44-1.00); POTASSIUM 3.9 mmol/L (3.5-5.1); TOTAL PROTEIN 6.3 g/dl (6.1-8.1)
[2016-12-26] MEDS: LOSARTAN 50 MG TAB PO SCH (09:00)
[2016-12-26] MEDS: TOLVAPTAN 15 MG TABLET PO SCH (09:00)
[2016-12-26] MEDS: ATENOLOL 25 MG TAB PO SCH (09:00)
[2016-12-26] MEDS ORDERED: SPECIAL NON-STANDARD MEDICATION PO SCH (09:00)
[2016-12-26] MEDS: ALBUTEROL/IPRATROPIUM (NEB) 3 ML AMP HHN SCH ×3 (09:19→19:55)
[2016-12-26] MEDS: ASPIRIN (EC) 81 MG TAB PO SCH (09:50)
[2016-12-26] MEDS: SODIUM CHLORIDE 1 GM TAB PO SCH ×3 (10:15→20:29)
--- NOTE | 2016-12-26 11:33 | PN ---
Date/Time of Note Date/Time of Note DATE: 12/26/16 TIME: 11:30 Assessment/Plan VTE Prophylaxis VTE Prophylaxis Intervention: SCD's Lines/Catheters IV Catheter Type (from Nrs): Peripheral IV Assessment/Plan Chief Complaint/Hosp Course Assessment/Plan 1) Hyponatremia, likely chronic, likely secondary to meds Has been placed on fluid Restriction to 1500 cc/day Continue to hold Triamterene/HCTZ (home medication) Nephrology has been consulted, continue sodium chloride tablets. Follow up electrolytes in a.m. follow nephrology recommendations 2) Pre-renal Azotemia, Continue gentle hydration as above 3) Abdominal Pain, possibly acute Aerial Erector has been consulted, 4) Chronic Pain with regular Opioid use, Hydrocodone-APAP 5-325 BID at home. No radiographic evidence of occult fracture on CAT scan. No signs of an occult malignancy or osteomyelitis. Chronic back pain without neurologic symptoms, urinary disruption, signs of cauda equina or spinal epidural abscess. Or evidence of cauda equina. 5) Anemia, Normochromic, Normocytic, Chronic. Normal RDW. Positive stool guaiac, continue to monitor, is technician been consulted 6) essential hypertension, well-controlled on medical management, hold hydrochlorothiazide secondary to hyponatremia DVT prophylaxis on SCD GI prophylaxis and PPI Problems: Subjective 24 Hr Interval Summary Free Text/Dictation Patient denies of any chest pain or shortness of breath Complains of having nasal discharge Tolerating oral intake Exam/Review of Systems Vital Signs Vitals Vital Signs Date Time Temp Pulse Resp B/P Pulse Ox O2 Delivery O2 Flow Rate FiO2 12/26/16 09:20 21 12/26/16 09:20 67 17 96 12/26/16 08:14 97.5 105/51 12/24/16 23:55 Room Air Intake and Output 12/25/16 12/25/16 12/26/16 15:00 23:00 07:00 Intake Total 650 ml 100 ml Output Total 650 ml Balance 0 ml 100 ml Exam General: The patient is moderately overweight, Not in acute distress. HEENT: Atraumatic, normocephalic. The pupils are equal and round . Neck: Supple , no lymphadenopathy Chest: Normal expansion of the thorax during inspiration Lungs: Clear to auscultation bilaterally Heart: Normal S1-S2, Regular rhythm and rate. Abdomen: Soft , nontender, nondistended , bowel sounds are present. Extremities: Normal to inspection, no edema no cyanosis Neurologic: Normal mental status,The patient is awake, alert and oriented . Results Result Diagram: 12/26/16 0610 12/26/16 0610 Results 24 hrs Laboratory Tests Test 12/25/16 12:00 12/25/16 18:10 12/26/16 06:10 Urine Color LT. YELLOW Urine Clarity CLEAR Urine pH 5.0 Urine Specific [place] 1.010 Urine Ketones NEGATIVE Urine Nitrite NEGATIVE Urine Bilirubin NEGATIVE Urine Urobilinogen 0.2 E.U./dL Urine Leukocyte Esterase NEGATIVE Urine Microscopic RBC 0-2 Urine Microscopic WBC 0-2 Urine Squamous Epithelial Cells FEW Urine Hemoglobin TRACE Urine Glucose NEGATIVE Urine Total Protein NEGATIVE Sodium Level 119 *L 119 *L Potassium Level 4.0 3.9 Chloride Level 83 L 87 L Carbon Dioxide Level 24 26 Anion Gap 16 10 # Blood Urea Nitrogen 27 H 28 H Creatinine 1.11 H 1.04 H Glucose Level 124 96 Calcium Level 9.0 8.4 White Blood Count 4.5 L Red Blood Count 3.16 L Hemoglobin 9.8 L Hematocrit 28.4 L Mean Corpuscular Volume 89.9 Mean Corpuscular Hemoglobin 31.0 Mean Corpuscular Hemoglobin Concent 34.5 Red Cell Distribution Width 11.8 Platelet Count 182 Mean Platelet Volume 10.7 H Neutrophils % 49.6 Lymphocytes % 36.3 Monocytes % 9.7 Eosinophils % 3.5 Basophils % 0.7 Nucleated Red Blood Cells % 0.0 Neutrophils # 2.2 Lymphocytes # 1.6 Monocytes # 0.4 Eosinophils # 0.2 Basophils # 0.0 Nucleated Red Blood Cells # 0.0 Total Bilirubin 0.5 Direct Bilirubin 0.00 Indirect Bilirubin 0.5 Aspartate Amino Transf (AST/SGOT) 28 Alanine Aminotransferase (ALT/SGPT) 23 Alkaline Phosphatase 51 Total Protein 6.3 Albumin 3.5 Globulin 2.80 Albumin/Globulin Ratio 1.25 Thyroid Stimulating Hormone (TSH) 1.240 Medications Medications Current Medications Nitroglycerin (Nitroglycerin (Sl Tab) 0.4 Mg) 1 tab Q5M PRN SL CHEST PAIN; Start 12/24/16 at 21:30 Acetaminophen (Tylenol Tab) 650 mg Q6H PRN PO PAIN LEVEL 1-3 OR FEVER; Start at 21:30 Acetaminophen/ Hydrocodone Bitart ([place] (5/325)) 1 tab Q6H PRN PO PAIN LEVEL 4 -6 Last administered on 12/25/16 14:23; Admin Dose 1 TAB; Start 12/24/16 at 21:30 Acetaminophen/ Hydrocodone Bitart ([place] (5/325)) 2 tab Q6H PRN PO PAIN LEVEL 7 -10; Start 12/24/16 at 21:30 Aspirin (Halfprin) 81 mg DAILY PO Last administered on 12/26/16 09:50; Admin Dose 81 MG; Start 12/25/16 at 09:00 Clonidine (Catapres) 0.1 mg BID PO Last administered on 12/26/16 09:50; Admin Dose 0.1 MG; Start 12/24/16 at 21:30 Losartan Potassium (Cozaar) 50 mg DAILY PO ; Start 12/25/16 at 09:00 Docusate Sodium (Colace) 100 mg DAILY PRN PO CONSTIPATION Last administered on 12/25/16 10:44; Admin Dose 100 MG; Start 12/25/16 at 10:30 Polyethylene Glycol (Miralax) 17 gm DAILY PRN PO CONSTIPATION; Start 12/25/16 at 12:00 Bisacodyl (Dulcolax Supp) [address] CONSTIPATION Last administered on 12/25/16 14:24; Admin Dose 10 MG; Start 12/25/16 at 13:00 Tramadol HCl (Ultram) 50 mg Q6H PRN GTB pain; Start 12/25/16 at 13:00 Furosemide (Lasix) 20 mg Q24H IV Last administered on 12/25/16 14:24; Admin Dose 20 MG; Start 12/25/16 at 13:00; Stop 12/26/16 at 12:59 Atenolol (Tenormin) 25 mg DAILY PO ; Start 12/26/16 at 09:00 Tolvaptan (Samsca) 30 mg DAILY PO Last administered on 12/26/16 09:00; Admin Dose 30 MG; Start 12/26/16 at 09:00; Stop 12/30/16 at 09:01 Sodium Chloride (Nacl) 1 gm TID PO Last administered on 12/26/16 10:15; Admin Dose 1 GM; Start 12/26/16 at 10:00 JOSE DANIEL PADILLA MD Dec 26, 2016 11:33
[2016-12-26] MEDS: FLUTICASONE 0.05% 16 GM NAS SPRAY NASAL SCH (13:25)
--- NOTE | 2016-12-26 17:56 | CONS ---
Date/Time of Note Date/Time of Note DATE: 12/26/16 TIME: 17:40 Assessment/Plan Assessment/Plan Additional Assessment/Plan ASSESSMENT * Abdominal pain improving * Anemia Hemoglobin 9.8 Iron deficiency vs chronic vs tumors * Constipation Functional vs obstructive Hyponatremia defer to nephrology Plan CT abdomen and Pelvis continue present medication Consultation Date/Type/Reason Admit Date/Time 12/24/16 2112 Type of Consultation: gastroenterology Reason for Consultation abdominal pain/positive occult blood Referring Provider: BREONNA UNDERWOOD of Present Illness 57 y/o female with past medical history of hypertension,arthritis,hyponatremia, chronic pain,history of lumbar compression fracture,chronic pain, on pain medication came in to er complaining of abdominal pain 3 days duration with constipation.She denied nausea or vomiting. She also complained of left hip pain .Emergency room ,patient presented with hyponatremia (na 119),hemoglobin 10.Xray of abdomen 12/26/2015 No evidence of bowel obstruction, perforation or radiopaque calculi overlying the urinary tracts. Occult blood is positive. Presently ,patient is still constipated with mild abdominal pain diffuse nonradiating,denies any nausea or vomiting,and afebrile Constitutional: improved, no complaints Eyes: no complaints ENT: no complaints Respiratory: no complaints Cardiovascular: no complaints Gastrointestinal: constipation, decreased appetite, flatus, pain, No diarrhea, No nausea, No passing stool Genitourinary: no complaints Musculoskeletal: no complaints Skin: no complaints Neurologic: no complaints Endocrine: no complaints Lymphatic: no complaints Psychological: nl mood/affect, no complaints Immunologic: no complaints Past Medical History Medical History: congestive heart failure, hypertension, other (lumbar compression fracture) Family History Significant Family History: no pertinent family hx Social History Alcohol Use: none Smoking Status: Unknown if ever smoked Drug Use: none Exam/Review of Systems Vital Signs Vitals Vital Signs Date Time Temp Pulse Resp B/P Pulse Ox O2 Delivery O2 Flow Rate FiO2 12/26/16 16:40 98.2 69 16 119/53 96 12/26/16 09:20 21 12/24/16 23:55 Room Air Intake and Output 12/25/16 12/25/16 12/26/16 15:00 23:00 07:00 Intake Total 650 ml 100 ml Output Total 650 ml Balance 0 ml 100 ml Exam Constitutional: alert, oriented, well developed Psych: nl mood/affect Head: atraumatic, normocephalic Eyes: PERRL, nl conjunctiva, nl lids, nl sclera ENMT: nl external ears & nose Neck: non-tender, supple Respiratory: clear to auscultation, normal air movement Cardiovascular: nl pulses, regular rate and rhythm Gastrointestinal: bowel sounds, non-tender, soft, No rebound or guarding Musculoskeletal: nl extremities to inspection Extremities: normal pulses Neurological: nl speech Skin: nl turgor, No rash or lesions Lymph: nl lymph nodes Results Result Diagram: 12/26/16 0610 12/26/16 0610 Results 24 hrs Laboratory Tests Test 12/25/16 18:10 12/26/16 06:10 Sodium Level 119 *L 119 *L Potassium Level 4.0 3.9 Chloride Level 83 L 87 L Carbon Dioxide Level 24 26 Anion Gap 16 10 # Blood Urea Nitrogen 27 H 28 H Creatinine 1.11 H 1.04 H Glucose Level 124 96 Calcium Level 9.0 8.4 White Blood Count 4.5 L Red Blood Count 3.16 L Hemoglobin 9.8 L Hematocrit 28.4 L Mean Corpuscular Volume 89.9 Mean Corpuscular Hemoglobin 31.0 Mean Corpuscular Hemoglobin Concent 34.5 Red Cell Distribution Width 11.8 Platelet Count 182 Mean Platelet Volume 10.7 H Neutrophils % 49.6 Lymphocytes % 36.3 Monocytes % 9.7 Eosinophils % 3.5 Basophils % 0.7 Nucleated Red Blood Cells % 0.0 Neutrophils # 2.2 Lymphocytes # 1.6 Monocytes # 0.4 Eosinophils # 0.2 Basophils # 0.0 Nucleated Red Blood Cells # 0.0 Total Bilirubin 0.5 Direct Bilirubin 0.00 Indirect Bilirubin 0.5 Aspartate Amino Transf (AST/SGOT) 28 Alanine Aminotransferase (ALT/SGPT) 23 Alkaline Phosphatase 51 Total Protein 6.3 Albumin 3.5 Globulin 2.80 Albumin/Globulin Ratio 1.25 Thyroid Stimulating Hormone (TSH) 1.240 Medications Medications Current Medications Nitroglycerin (Nitroglycerin (Sl Tab) 0.4 Mg) 1 tab Q5M PRN SL CHEST PAIN; Start 12/24/16 at 21:30 Acetaminophen (Tylenol Tab) 650 mg Q6H PRN PO PAIN LEVEL 1-3 OR FEVER; Start at 21:30 Acetaminophen/ Hydrocodone Bitart ([place] (5/325)) 1 tab Q6H PRN PO PAIN LEVEL 4 -6 Last administered on 12/25/16 14:23; Admin Dose 1 TAB; Start 12/24/16 at 21:30 Acetaminophen/ Hydrocodone Bitart ([place] (5/325)) 2 tab Q6H PRN PO PAIN LEVEL 7 -10; Start 12/24/16 at 21:30 Aspirin (Halfprin) 81 mg DAILY PO Last administered on 12/26/16 09:50; Admin Dose 81 MG; Start 12/25/16 at 09:00 Clonidine (Catapres) 0.1 mg BID PO Last administered on 12/26/16 09:50; Admin Dose 0.1 MG; Start 12/24/16 at 21:30 Losartan Potassium (Cozaar) 50 mg DAILY PO ; Start 12/25/16 at 09:00 Docusate Sodium (Colace) 100 mg DAILY PRN PO CONSTIPATION Last administered on 12/25/16 10:44; Admin Dose 100 MG; Start 12/25/16 at 10:30 Polyethylene Glycol (Miralax) 17 gm DAILY PRN PO CONSTIPATION Last administered on 12/26/16 15:55; Admin Dose 17 GM; Start 12/25/16 at 12:00 Bisacodyl (Dulcolax Supp) 10 mg DAILY PRN [place] CONSTIPATION Last administered on 12/25/16 14:24; Admin Dose 10 MG; Start 12/25/16 at 13:00 Tramadol HCl (Ultram) 50 mg Q6H PRN GTB pain; Start 12/25/16 at 13:00 Atenolol (Tenormin) 25 mg DAILY PO ; Start 12/26/16 at 09:00 Tolvaptan (Samsca) 30 mg DAILY PO Last administered on 12/26/16 09:00; Admin Dose 30 MG; Start 12/26/16 at 09:00; Stop 12/30/16 at 09:01 Sodium Chloride (Nacl) 1 gm TID PO Last administered on 12/26/16 13:25; Admin Dose 1 GM; Start 12/26/16 at 10:00 Fluticasone Propionate (Flonase 0.05% Nasal) 1 spray DAILY NASAL Last administered on 12/26/16 13:25; Admin Dose 1 SPRAY; Start 12/26/16 at 12:00 AISHA CINTRON MD Dec 26, 2016 17:51
[2016-12-26] MEDS ORDERED: LORAZEPAM 2 MG INJ IV ONE (20:00)
[2016-12-26] MEDS ORDERED: ZOLPIDEM 5 MG TAB PO PRN (22:00)
--- NOTE | 2016-12-26 22:58 | CONS ---
DATE OF ADMISSION: 12/24/2016 DATE OF CONSULTATION: This elderly 86-year-old [place] female with history of arteriosclerotic heart disease, congestive heart failure, osteoarthritis, hypertension, and has been found to have persistent hyponatremia. The patient had been started on hypertonic saline and IV normal saline, which were discontinued because of the fear of the worsening congestive heart failure. Serum sodium did not change with fluid restriction alone and p.o. sodium chloride tablets were added. The patient is also being started on tolvaptan, which hopefully should improve the serum sodium picture. She can be discharged once the sodium is above 130. Until then, the patient will be followed closely. She must not be placed on any diuretics for the time being, though may have to resume once she's dcd. The only etiology of hyponatremia so far is due to CHF & dilution, tho possibility that SIADH played a factor can not be ruled out Dictated By: LIO SERRANO/LAST Conf#: [id number] DID#: [id number]
[2016-12-27] VITALS (12 sets, daily range): BP systolic 103–131; BP diastolic 53–93; PULSE 64–108; RESP 16–20
[2016-12-27] MEDS ORDERED: ZOLPIDEM 5 MG TAB PO ONE
[2016-12-27] MEDS ORDERED: ZOLPIDEM 5 MG TAB PO PRN ×2 (00:30→22:40)
[2016-12-27] MEDS ORDERED: BARIUM SULF 2% 450 ML BTL (BERRY SMOOTHIE) PO ONE (07:00)
[2016-12-27 07:27] LABS: ALBUMIN 3.7 g/dl (3.3-4.9); POTASSIUM 3.8 mmol/L (3.5-5.1)
[2016-12-27 07:29] LABS: BILIRUBIN,INDIRECT 0.5 mg/dl (0-1.1); BILIRUBIN,TOTAL 0.5 mg/dl (0.2-1.3); CREATININE 0.92 mg/dl (0.44-1.00)
[2016-12-27 07:30] LABS: TOTAL PROTEIN 6.9 g/dl (6.1-8.1)
[2016-12-27 07:31] LABS: CALCIUM 9.2 mg/dl (8.4-10.2)
[2016-12-27] MEDS: ALBUTEROL/IPRATROPIUM (NEB) 3 ML AMP HHN SCH ×2 (07:40→13:13)
[2016-12-27 07:45] LABS: ALBUMIN/GLOBULIN RATIO 1.15
[2016-12-27] MEDS: FLUTICASONE 0.05% 16 GM NAS SPRAY NASAL SCH (08:16)
[2016-12-27] MEDS: LOSARTAN 50 MG TAB PO SCH (08:16)
[2016-12-27] MEDS: ATENOLOL 25 MG TAB PO SCH (08:17)
[2016-12-27] MEDS: ASPIRIN (EC) 81 MG TAB PO SCH (08:17)
[2016-12-27] MEDS: TOLVAPTAN 15 MG TABLET PO SCH (08:26)
[2016-12-27] MEDS: SODIUM CHLORIDE 1 GM TAB PO SCH ×3 (08:26→21:53)
[2016-12-27] MEDS ORDERED: IODIXANOL LOCM 100 ML BTL ONE (09:46)
[2016-12-27] MEDS ORDERED: SOD CHLORIDE 0.9% 100 ML ONE (09:46)
--- NOTE | 2016-12-27 10:22 | RADRPT ---
PROCEDURE: CT Abdomen and pelvis with and without contrast. CLINICAL INDICATION: abdominal pain/constipation TECHNIQUE: CT scan of the abdomen and pelvis with and without contrast was performed on a multidet ly high-resolution CT scan. The patient was scanned without and following the uncomplicated intr avenous administration of 95 ml of Visipaque 320. Coronal and sagittal reformatted images were obta ined from the axial source images. Standard CT abdomen and pelvis with and without contrast protocol s were performed. The total exam CTDI equals 11.9 mGy and the total exam DLP equals 1204.44 mGy-cm. One or more of the following dose reduction techniques were used: - Automated exposure control. - Adjustment of the mA and/or kV according to patient size. Use of iterative reconstruction technique. COMPARISON: None. FINDINGS: The right hemidiaphragm is elevated. The heart is mildly enlarged there is coronary are disease. N o evidence of pericardial effusion. No evidence of basilar pleural effusions. Parenchymal changes at the lung bases most consistent with atelectasis and scarring. Lung bases are otherwise unremarka ble. The liver spleen pancreas adrenal glands and kidneys are normal in size configuration without focal lesions. There is no evidence of calcified urinary calculi bilaterally. There is mild bilateral pe lvocaliectasis and mild right extrarenal pelvis but no evidence of hydronephrosis bilaterally. No e vidence of calcified renal calculi. The gallbladder is unremarkable and there is no evidence biliar y ductal dilation. The urinary bladder is unremarkable. Uterus is anteverted but otherwise unremarkable. There are no adnexal masses. Negative for intra-abdominal free fluid, free air, abscesses or lymphadenopathy. There is a small to moderate hiatal hernia. The stomach is otherwise unremarkable. The left colon is decompressed there is gas and feces in the right colon with the colon otherwise unremarkable. Th ere is no CT evidence of diverticulitis. The appendix is unremarkable. The small bowel is unremark able. There is atherosclerosis of the abdominal aorta and iliac arteries but no aneurysm. There is a levo rotatory scoliosis of the lower thoracic and lumbar spine. There is chronic moderate L1 compression fracture. There is degenerative changes lower thoracic and lumbar spine. There is exaggerated lum bar lordosis. There are no acute osseous findings. There are no osteoblastic/osteolytic lesions. IMPRESSION: 1. No evidence of bowel obstruction. No CT evidence of diverticulitis or appendicitis. 2. Small to moderate hiatal hernia. 3. Relatively decompressed left colon with retained gas and feces in the right colon. 4. Mild bilateral pelvocaliectasis and right extrarenal pelvis but no calcified renal calculi or ob structive uropathy. 5. Negative for intra-abdominal free air fluid abscesses or lymphadenopathy. 6. Extensive atherosclerotic vascular disease but no abdominal aortic aneurysm. 7. Cardiomegaly and coronary artery disease. 8. Chronic osseous findings as above. If RPTAT:AAJJ Ginger Engel Physician Date Time Electronically viewed and signed by Ginger Engel Physician on 12/27/2016 10:22 BM/
--- NOTE | 2016-12-27 10:40 | CONS ---
Date/Time of Note Date/Time of Note DATE: 12/27/16 TIME: 10:40 Assessment/Plan Assessment/Plan Additional Assessment/Plan 1. Congestive heart failure on thiazide diuretics. 2. Hyponatremia may be related to above. 3. History of hypertension with possible hypertensive cardiovascular disease contributing to above. 4. Degenerative joint disease on Celebrex and pain medication, question of SIADH. 5. Abdominal pain, etiology not clear. Na improving to goal Good UO reported DC Tolvaptan once Na level >130 DC Nacl Tablets in am Cont to monitor UO, Electrolytes and renal function Discussed case with Hospitalist Consultation Date/Type/Reason Admit Date/Time Dec 24, 2016 at 21:29 Initial Consult Date Type of Consultation: Renal Referring Provider: BREONNA UNDERWOOD DO 24 HR Interval Summary Constitutional: No requiring O2 Exam/Review of Systems Vital Signs Vitals Vital Signs Date Time Temp Pulse Resp B/P Pulse Ox O2 Delivery O2 Flow Rate FiO2 12/27/16 08:30 69 12/27/16 07:59 97.7 19 127/57 94 12/27/16 07:40 21 12/24/16 23:55 Room Air Intake and Output 12/26/16 12/26/16 12/27/16 15:00 23:00 07:00 Intake Total 200 ml Balance 200 ml Exam Constitutional: No distress ENMT: mucosa pink and moist Cardiovascular: No edema Gastrointestinal: non-tender, soft Neurological: No lethargic Results Result Diagram: 12/26/16 0610 12/27/16 0640 Results 24 hrs Laboratory Tests Test 12/26/16 17:35 12/27/16 06:40 Sodium Level 124 L 129 L Potassium Level 3.8 Chloride Level 92 L Carbon Dioxide Level 26 Anion Gap 15 Blood Urea Nitrogen 26 H Creatinine 0.92 Glucose Level 99 Calcium Level 9.2 Total Bilirubin 0.5 Direct Bilirubin 0.00 Indirect Bilirubin 0.5 Aspartate Amino Transf (AST/SGOT) 28 Alanine Aminotransferase (ALT/SGPT) 17 Alkaline Phosphatase 57 Total Protein 6.9 Albumin 3.7 Globulin 3.20 Albumin/Globulin Ratio 1.15 Medications Medications Current Medications Nitroglycerin (Nitroglycerin (Sl Tab) 0.4 Mg) 1 tab Q5M PRN SL CHEST PAIN; Start 12/24/16 at 21:30 Acetaminophen (Tylenol Tab) 650 mg Q6H PRN PO PAIN LEVEL 1-3 OR FEVER; Start at 21:30 Acetaminophen/ Hydrocodone Bitart ([place] (5/325)) 1 tab Q6H PRN PO PAIN LEVEL 4 -6 Last administered on 12/25/16 14:23; Admin Dose 1 TAB; Start 12/24/16 at 21:30 Acetaminophen/ Hydrocodone Bitart ([place] (5/325)) 2 tab Q6H PRN PO PAIN LEVEL 7 -10; Start 12/24/16 at 21:30 Aspirin (Halfprin) 81 mg DAILY PO Last administered on 12/27/16 08:17; Admin Dose 81 MG; Start 12/25/16 at 09:00 Clonidine (Catapres) 0.1 mg BID PO Last administered on 12/27/16 08:16; Admin Dose 0.1 MG; Start 12/24/16 at 21:30 Losartan Potassium (Cozaar) 50 mg DAILY PO Last administered on 12/27/16 08:16 ; Admin Dose 50 MG; Start 12/25/16 at 09:00 Docusate Sodium (Colace) 100 mg DAILY PRN PO CONSTIPATION Last administered on 12/25/16 10:44; Admin Dose 100 MG; Start 12/25/16 at 10:30 Polyethylene Glycol (Miralax) 17 gm DAILY PRN PO CONSTIPATION Last administered on 12/26/16 15:55; Admin Dose 17 GM; Start 12/25/16 at 12:00 Bisacodyl (Dulcolax Supp) 10 mg DAILY PRN [place] CONSTIPATION Last administered on 12/25/16 14:24; Admin Dose 10 MG; Start 12/25/16 at 13:00 Tramadol HCl (Ultram) 50 mg Q6H PRN GTB pain; Start 12/25/16 at 13:00 Atenolol (Tenormin) 25 mg DAILY PO Last administered on 12/27/16 08:17; Admin Dose 25 MG; Start 12/26/16 at 09:00 Tolvaptan (Samsca) 30 mg DAILY PO Last administered on 12/27/16 08:26; Admin Dose 30 MG; Start 12/26/16 at 09:00; Stop 12/30/16 at 09:01 Sodium Chloride (Nacl) 1 gm TID PO Last administered on 12/27/16 08:26; Admin Dose 1 GM; Start 12/26/16 at 10:00 Fluticasone Propionate (Flonase 0.05% Nasal) 1 spray DAILY NASAL Last administered on 12/27/16 08:16; Admin Dose 1 SPRAY; Start 12/26/16 at 12:00 Procedures Procedures IMPRESSION: 1. No evidence of bowel obstruction. No CT evidence of diverticulitis or appendicitis. 2. Small to moderate hiatal hernia. 3. Relatively decompressed left colon with retained gas and feces in the right colon. 4. Mild bilateral pelvocaliectasis and right extrarenal pelvis but no calcified renal calculi or obstructive uropathy. 5. Negative for intra-abdominal free air fluid abscesses or lymphadenopathy. 6. Extensive atherosclerotic vascular disease but no abdominal aortic aneurysm. 7. Cardiomegaly and coronary artery disease. 8. Chronic osseous findings as above. JOSE Hernandez MD Dec 27, 2016 10:40
--- NOTE | 2016-12-27 11:38 | PDOCDIS ---
Discharge Instructions CONDITION Patient Condition: Good HOME CARE INSTRUCTIONS: Special Diet: Regular Diet ACTIVITY: Activity Restrictions: Slowly Increase Activity Rest between Activity Avoid heavy lifting Special Exercises FOLLOW UP/APPOINTMENTS Appointments Follow-up with nephrology as outpatient JOSE DANIEL PADILLA MD Dec 27, 2016 11:38
[2016-12-27] MEDS ORDERED: NIT4 SL (11:51)
[2016-12-27] MEDS ORDERED: DOCU-216 PO (11:51)
[2016-12-27] MEDS ORDERED: BISA10SU75 PR (11:51)
[2016-12-27] MEDS ORDERED: ATEN-138 PO (11:51)
[2016-12-27] MEDS ORDERED: FLUT16SP17 NASAL (11:51)
[2016-12-27] MEDS ORDERED: TOLV15TA PO (11:51)
[2016-12-27] MEDS ORDERED: SODI100010 PO (11:51)
[2016-12-27] MEDS ORDERED: ALBU2.5V3 HHN (11:51)
[2016-12-27] MEDS ORDERED: LOSA50TA6 PO (11:51)
[2016-12-27] MEDS ORDERED: POLY17PO6 PO (11:51)
--- NOTE | 2016-12-27 11:56 | PN ---
Date/Time of Note Date/Time of Note DATE: 12/27/16 TIME: 11:52 Assessment/Plan VTE Prophylaxis VTE Prophylaxis Intervention: SCD's Lines/Catheters IV Catheter Type (from Nrsg): Peripheral IV Assessment/Plan Chief Complaint/Hosp Course Assessment/Plan 1) Hyponatremia, likely chronic, likely secondary to meds Has been placed on fluid Restriction to 1500 cc/day Continue to hold Triamterene/HCTZ (home medication) Nephrology has been consulted, continue sodium chloride tablets and Samsca . Follow up electrolytes in a.m. follow nephrology recommendations 2) Pre-renal Azotemia, Continue gentle hydration as above 3) gastrointestinal bleeding, with positive stool guaiac Clinical Veterinarian has been consulted, plan for colonoscopy tomorrow 4) Chronic Pain with regular Opioid use, Hydrocodone-APAP 5-325 BID at home. No radiographic evidence of occult fracture on CAT scan. No signs of an occult malignancy or osteomyelitis. Chronic back pain without neurologic symptoms, urinary disruption, signs of cauda equina or spinal epidural abscess. Or evidence of cauda equina. 5) Anemia, Normochromic, Normocytic, Chronic. Normal RDW. Positive stool guaiac, continue to monitor, home health aid been consulted 6) essential hypertension, well-controlled on medical management, hold hydrochlorothiazide secondary to hyponatremia DVT prophylaxis on SCD GI prophylaxis and PPI Plan to discharge to assisted facility tomorrow after colonoscopy Problems: Subjective 24 Hr Interval Summary Free Text/Dictation Patient denies of any chest pain or shortness of breath No nausea vomiting diarrhea Continues to have constipation Exam/Review of Systems Vital Signs Vitals Vital Signs Date Time Temp Pulse Resp B/P Pulse Ox O2 Delivery O2 Flow Rate FiO2 12/27/16 08:30 69 12/27/16 07:59 97.7 19 127/57 94 12/27/16 07:40 21 12/24/16 23:55 Room Air Intake and Output 12/26/16 12/26/16 12/27/16 15:00 23:00 07:00 Intake Total 200 ml Balance 200 ml Exam General: The patient is moderately overweight, Not in acute distress. HEENT: Atraumatic, normocephalic. The pupils are equal and round . Neck: Supple with full range of motion. Chest: Normal expansion of the thorax during inspiration Lungs: Clear to auscultation bilaterally Heart: Normal S1-S2, Regular rhythm and rate. Abdomen: Soft , nontender, nondistended , bowel sounds are present. Extremities: Normal to inspection, no edema no cyanosis Neurologic: Normal mental status,The patient is awake, alert Results Result Diagram: 12/26/16 0610 12/27/16 0640 Results 24 hrs Laboratory Tests Test 12/26/16 17:35 12/27/16 06:40 Sodium Level 124 L 129 L Potassium Level 3.8 Chloride Level 92 L Carbon Dioxide Level 26 Anion Gap 15 Blood Urea Nitrogen 26 H Creatinine 0.92 Glucose Level 99 Calcium Level 9.2 Total Bilirubin 0.5 Direct Bilirubin 0.00 Indirect Bilirubin 0.5 Aspartate Amino Transf (AST/SGOT) 28 Alanine Aminotransferase (ALT/SGPT) 17 Alkaline Phosphatase 57 Total Protein 6.9 Albumin 3.7 Globulin 3.20 Albumin/Globulin Ratio 1.15 Medications Medications Current Medications Nitroglycerin (Nitroglycerin (Sl Tab) 0.4 Mg) 1 tab Q5M PRN SL CHEST PAIN; Start 12/24/16 at 21:30 Acetaminophen (Tylenol Tab) 650 mg Q6H PRN PO PAIN LEVEL 1-3 OR FEVER; Start at 21:30 Acetaminophen/ Hydrocodone Bitart ([place] (5/325)) 1 tab Q6H PRN PO PAIN LEVEL 4 -6 Last administered on 12/25/16 14:23; Admin Dose 1 TAB; Start 12/24/16 at 21:30 Acetaminophen/ Hydrocodone Bitart ([place] (5/325)) 2 tab Q6H PRN PO PAIN LEVEL 7 -10; Start 12/24/16 at 21:30 Aspirin (Halfprin) 81 mg DAILY PO Last administered on 12/27/16 08:17; Admin Dose 81 MG; Start 12/25/16 at 09:00 Clonidine (Catapres) 0.1 mg BID PO Last administered on 12/27/16 08:16; Admin Dose 0.1 MG; Start 12/24/16 at 21:30 Losartan Potassium (Cozaar) 50 mg DAILY PO Last administered on 12/27/16 08:16 ; Admin Dose 50 MG; Start 12/25/16 at 09:00 Docusate Sodium (Colace) 100 mg DAILY PRN PO CONSTIPATION Last administered on 12/25/16 10:44; Admin Dose 100 MG; Start 12/25/16 at 10:30 Polyethylene Glycol (Miralax) 17 gm DAILY PRN PO CONSTIPATION Last administered on 12/26/16 15:55; Admin Dose 17 GM; Start 12/25/16 at 12:00 Bisacodyl (Dulcolax Supp) 10 mg DAILY PRN [place] CONSTIPATION Last administered on 12/25/16 14:24; Admin Dose 10 MG; Start 12/25/16 at 13:00 Tramadol HCl (Ultram) 50 mg Q6H PRN GTB pain; Start 12/25/16 at 13:00 Atenolol (Tenormin) 25 mg DAILY PO Last administered on 12/27/16 08:17; Admin Dose 25 MG; Start 12/26/16 at 09:00 Tolvaptan (Samsca) 30 mg DAILY PO Last administered on 12/27/16 08:26; Admin Dose 30 MG; Start 12/26/16 at 09:00; Stop 12/30/16 at 09:01 Sodium Chloride (Nacl) 1 gm TID PO Last administered on 12/27/16 08:26; Admin Dose 1 GM; Start 12/26/16 at 10:00 Fluticasone Propionate (Flonase 0.05% Nasal) 1 spray DAILY NASAL Last administered on 12/27/16 08:16; Admin Dose 1 SPRAY; Start 12/26/16 at 12:00 JOSE DANIEL PADILLA MD Dec 27, 2016 11:56
[2016-12-27] MEDS ORDERED: BISACODYL (EC) 5 MG TAB PO ONE (12:00)
--- NOTE | 2016-12-27 12:39 | PN ---
Date/Time of Note Date/Time of Note DATE: 12/27/16 TIME: 12:31 Assessment/Plan VTE Prophylaxis VTE Prophylaxis Intervention: SCD's Lines/Catheters IV Catheter Type (from Nrsg): Peripheral IV Assessment/Plan Assessment/Plan ASSESSMENT * Abdominal pain improved * Anemia Hemoglobin 9.8 Iron deficiency vs chronic vs tumors * Constipation Functional vs obstructive Hyponatremia controlled defer to nephrology 12/26/2016 CT ABDOMEN/PELVIS 1. No evidence of bowel obstruction. No CT evidence of diverticulitis or appendicitis. 2. Small to moderate hiatal hernia. 3. Relatively decompressed left colon with retained gas and feces in the right colon. 4. Mild bilateral pelvocaliectasis and right extrarenal pelvis but no calcified renal calculi or obstructive uropathy. 5. Negative for intra-abdominal free air fluid abscesses or lymphadenopathy. 6. Extensive atherosclerotic vascular disease but no abdominal aortic aneurysm. 7. Cardiomegaly and coronary artery disease. 8. Chronic osseous findings as above. Plan EGD and colonoscopy tomorrow spoke with the family risks and benefit explained to family agreed with planned procedure continue present medication Subjective 24 Hr Interval Summary Free Text/Dictation * course reviewed with rn * patient seen and examined * 12/26/2016 CT abdomen * 1. No evidence of bowel obstruction. No CT evidence of diverticulitis or appendicitis. 2. Small to moderate hiatal hernia. 3. Relatively decompressed left colon with retained gas and feces in the right colon. 4. Mild bilateral pelvocaliectasis and right extrarenal pelvis but no calcified renal calculi or obstructive uropathy. 5. Negative for intra-abdominal free air fluid abscesses or lymphadenopathy. 6. Extensive atherosclerotic vascular disease but no abdominal aortic aneurysm. 7. Cardiomegaly and coronary artery disease. 8. Chronic osseous findings as above no abdominal pain Exam/Review of Systems Vital Signs Vitals Vital Signs Date Time Temp Pulse Resp B/P Pulse Ox O2 Delivery O2 Flow Rate FiO2 12/27/16 12:23 98.5 69 18 116/53 95 12/27/16 07:40 21 12/24/16 23:55 Room Air Intake and Output 12/26/16 12/26/16 12/27/16 15:00 23:00 07:00 Intake Total 200 ml Balance 200 ml Exam Constitutional: alert Neck: supple Respiratory: clear to auscultation, normal air movement Cardiovascular: nl pulses, regular rate and rhythm Gastrointestinal: non-tender, soft Musculoskeletal: nl extremities to inspection Results Result Diagram: 12/26/16 0610 12/27/16 0640 Results 24 hrs Laboratory Tests Test 12/26/16 17:35 12/27/16 06:40 Sodium Level 124 L 129 L Potassium Level 3.8 Chloride Level 92 L Carbon Dioxide Level 26 Anion Gap 15 Blood Urea Nitrogen 26 H Creatinine 0.92 Glucose Level 99 Calcium Level 9.2 Total Bilirubin 0.5 Direct Bilirubin 0.00 Indirect Bilirubin 0.5 Aspartate Amino Transf (AST/SGOT) 28 Alanine Aminotransferase (ALT/SGPT) 17 Alkaline Phosphatase 57 Total Protein 6.9 Albumin 3.7 Globulin 3.20 Albumin/Globulin Ratio 1.15 Medications Medications Current Medications Nitroglycerin (Nitroglycerin (Sl Tab) 0.4 Mg) 1 tab Q5M PRN SL CHEST PAIN; Start 12/24/16 at 21:30 Acetaminophen (Tylenol Tab) 650 mg Q6H PRN PO PAIN LEVEL 1-3 OR FEVER; Start at 21:30 Acetaminophen/ Hydrocodone Bitart ([place] (5/325)) 1 tab Q6H PRN PO PAIN LEVEL 4 -6 Last administered on 12/25/16 14:23; Admin Dose 1 TAB; Start 12/24/16 at 21:30 Acetaminophen/ Hydrocodone Bitart ([place] (5/325)) 2 tab Q6H PRN PO PAIN LEVEL 7 -10; Start 12/24/16 at 21:30 Aspirin (Halfprin) 81 mg DAILY PO Last administered on 12/27/16 08:17; Admin Dose 81 MG; Start 12/25/16 at 09:00 Clonidine (Catapres) 0.1 mg BID PO Last administered on 12/27/16 08:16; Admin Dose 0.1 MG; Start 12/24/16 at 21:30 Losartan Potassium (Cozaar) 50 mg DAILY PO Last administered on 12/27/16 08:16 ; Admin Dose 50 MG; Start 12/25/16 at 09:00 Docusate Sodium (Colace) 100 mg DAILY PRN PO CONSTIPATION Last administered on 12/25/16 10:44; Admin Dose 100 MG; Start 12/25/16 at 10:30 Polyethylene Glycol (Miralax) 17 gm DAILY PRN PO CONSTIPATION Last administered on 12/26/16 15:55; Admin Dose 17 GM; Start 12/25/16 at 12:00 Bisacodyl (Dulcolax Supp) 10 mg DAILY PRN [place] CONSTIPATION Last administered on 12/25/16 14:24; Admin Dose 10 MG; Start 12/25/16 at 13:00 Tramadol HCl (Ultram) 50 mg Q6H PRN GTB pain; Start 12/25/16 at 13:00 Atenolol (Tenormin) 25 mg DAILY PO Last administered on 12/27/16 08:17; Admin Dose 25 MG; Start 12/26/16 at 09:00 Tolvaptan (Samsca) 30 mg DAILY PO Last administered on 12/27/16 08:26; Admin Dose 30 MG; Start 12/26/16 at 09:00; Stop 12/30/16 at 09:01 Sodium Chloride (Nacl) 1 gm TID PO Last administered on 12/27/16 08:26; Admin Dose 1 GM; Start 12/26/16 at 10:00 Fluticasone Propionate (Flonase 0.05% Nasal) 1 spray DAILY NASAL Last administered on 12/27/16 08:16; Admin Dose 1 SPRAY; Start 12/26/16 at 12:00 Magnesium Citrate (Citroma) 300 ml ONCE ONCE PO ; Start 12/27/16 at 17:30; Stop 12/27/16 at 17:31 Polyethylene Glycol (Miralax) 119 gm ONCE ONCE PO ; Start 12/27/16 at 18:30; Stop 12/27/16 at 18:31 AISHA CINTRON MD Dec 27, 2016 12:38
[2016-12-27] MEDS ORDERED: MAGNESIUM CITRATE 300 ML BTL PO ONE (17:30)
[2016-12-27] MEDS ORDERED: POLYETHYLENE GLYCOL 3350 119 GM POWDER PO ONE (18:30)
[2016-12-28] VITALS (20 sets, daily range): BP systolic 98–128; BP diastolic 36–81; PULSE 61–88; RESP 16–22
--- NOTE | 2016-12-28 05:36 | RADRPT ---
PROCEDURE: XR Chest. CLINICAL INDICATION: Preop TECHNIQUE: A single AP view of the chest was obtained. COMPARISON: Chest x-ray dated 12/25/2016 FINDINGS: Lung volumes are low with compressive changes, vascular crowding and basilar atelectasis. No focal a irspace opacity, pleural effusion or pneumothorax is seen. The cardiomediastinal silhouette is with in normal limits for size. The osseous structures are unremarkable. IMPRESSION: 1. Low lung volumes with compressive changes and basilar atelectasis. 2. Overall, no significant interval change. RPTAT: HH .Tiffany Workman MD, MD Date Time Electronically viewed and signed by .Tiffany Workman MD, on 12/28/2016 05:36 .G/
[2016-12-28] MEDS ORDERED: POLYETHYLENE GLYCOL 3350 119 GM POWDER PO ONE (06:00)
[2016-12-28 06:59] LABS: ADD SCAN DIFF NO
[2016-12-28 07:01] LABS: BASOPHILS % 0.6 % (0.0-2.0); EOSINOPHILS # 0.1 10^3/ul (0.0-0.5); EOSINOPHILS % 1.8 % (0.0-7.0); HEMATOCRIT 33.1 % (37.0-47.0); HEMOGLOBIN 10.9 g/dl (12.0-16.0); LYMPHOCYTES # 1.2 10^3/ul (0.8-2.9); LYMPHOCYTES % 18.2 % (15.0-51.0); MEAN CORPUSCULAR HEMOGLOBIN 30.6 pg (29.0-33.0); MEAN CORPUSCULAR HGB CONC 32.9 g/dl (32.0-37.0); MEAN PLATELET VOLUME 10.2 fl (7.4-10.4); MONOCYTE # 0.6 10^3/ul (0.3-0.9); MONOCYTES % 8.9 % (0.0-11.0); NEUTROPHIL # 4.6 10^3/ul (1.6-7.5); NEUTROPHILS % 70.2 % (39.0-77.0); PLATELET COUNT 222 10^3/UL (140-415); RED BLOOD COUNT 3.56 10^6/ul (4.20-5.40); RED CELL DISTRIBUTION WIDTH 12.2 % (11.5-14.5); WHITE BLOOD COUNT 6.5 10^3/ul (4.8-10.8)
[2016-12-28 07:33] LABS: ALBUMIN 3.9 g/dl (3.3-4.9); ALBUMIN/GLOBULIN RATIO 1.21; BILIRUBIN,INDIRECT 0.3 mg/dl (0-1.1); BILIRUBIN,TOTAL 0.3 mg/dl (0.2-1.3); CALCIUM 9.6 mg/dl (8.4-10.2); CREATININE 0.89 mg/dl (0.44-1.00); POTASSIUM 4.2 mmol/L (3.5-5.1); TOTAL PROTEIN 7.1 g/dl (6.1-8.1)
[2016-12-28] MEDS: ALBUTEROL/IPRATROPIUM (NEB) 3 ML AMP HHN SCH ×3 (07:51→20:55)
[2016-12-28] MEDS ORDERED: BISACODYL (EC) 5 MG TAB PO ONE (08:00)
[2016-12-28] MEDS: FLUTICASONE 0.05% 16 GM NAS SPRAY NASAL SCH (09:12)
[2016-12-28] MEDS: SODIUM CHLORIDE 1 GM TAB PO SCH (09:19)
[2016-12-28] MEDS: ATENOLOL 25 MG TAB PO SCH (09:20)
[2016-12-28] MEDS: ASPIRIN (EC) 81 MG TAB PO SCH (09:20)
[2016-12-28] MEDS: LOSARTAN 50 MG TAB PO SCH (09:20)
--- NOTE | 2016-12-28 10:11 | RADRPT ---
Vent Rate: 70 bpm RR Interval: 0 msec VA Interval: 178 msec QRS Duration: 80 msec QT Interval: 380 msec QTC Interval: 410 msec P-R-T [place]: 33 - 43 - 53 degrees Normal sinus rhythm Normal ECG Electronically Signed By: Brian Martínez [id number]
--- NOTE | 2016-12-28 17:03 | CONS ---
Date/Time of Note Date/Time of Note DATE: 12/28/16 TIME: 17:01 Assessment/Plan Assessment/Plan Additional Assessment/Plan 1. Congestive heart failure on thiazide diuretics. 2. Hyponatremia related to above. 3. History of hypertension with possible hypertensive cardiovascular disease contributing to above. 4. Degenerative joint disease on Celebrex and pain medication, question of SIADH. 5. Abdominal pain, Pending Colonoscopy Na improving to goal, now 133 Good UO reported Cont to hold NACL, Tolvaptan and HCTZ diuretic Rx Cont to monitor UO, Electrolytes and renal function Discussed case with Hospitalist Consultation Date/Type/Reason Admit Date/Time Dec 24, 2016 at 21:29 Type of Consultation: Renal Referring Provider: BREONNA UNDERWOOD DO 24 HR Interval Summary Free Text/Dictation Went down for colonoscopy. Na improved. Nacl and Samsca not given today. Exam/Review of Systems Vital Signs Vitals Vital Signs Date Time Temp Pulse Resp B/P Pulse Ox O2 Delivery O2 Flow Rate FiO2 12/28/16 16:27 73 12/28/16 15:44 98.5 16 98/49 95 12/28/16 13:38 21 12/24/16 23:55 Room Air Intake and Output 12/27/16 12/27/16 12/28/16 15:00 23:00 07:00 Intake Total 300 ml 1500 ml Balance 300 ml 1500 ml Exam Constitutional: No distress ENMT: mucosa pink and moist Cardiovascular: edema Neurological: No confused, No lethargic Results Result Diagram: 12/28/16 0655 12/28/16 0655 Results 24 hrs Laboratory Tests Test 12/28/16 06:55 White Blood Count 6.5 # Red Blood Count 3.56 L Hemoglobin 10.9 L Hematocrit 33.1 L Mean Corpuscular Volume 93.0 Mean Corpuscular Hemoglobin 30.6 Mean Corpuscular Hemoglobin Concent 32.9 Red Cell Distribution Width 12.2 Platelet Count 222 # Mean Platelet Volume 10.2 Neutrophils % 70.2 Lymphocytes % 18.2 Monocytes % 8.9 Eosinophils % 1.8 Basophils % 0.6 Nucleated Red Blood Cells % 0.0 Neutrophils # 4.6 Lymphocytes # 1.2 Monocytes # 0.6 Eosinophils # 0.1 Basophils # 0.0 Nucleated Red Blood Cells # 0.0 Sodium Level 133 L Potassium Level 4.2 Chloride Level 104 # Carbon Dioxide Level 22 Anion Gap 11 Blood Urea Nitrogen 23 H Creatinine 0.89 Glucose Level 116 Calcium Level 9.6 Total Bilirubin 0.3 Direct Bilirubin 0.00 Indirect Bilirubin 0.3 Aspartate Amino Transf (AST/SGOT) 26 Alanine Aminotransferase (ALT/SGPT) 25 Alkaline Phosphatase 61 Total Protein 7.1 Albumin 3.9 Globulin 3.20 Albumin/Globulin Ratio 1.21 Medications Medications Current Medications Nitroglycerin (Nitroglycerin (Sl Tab) 0.4 Mg) 1 tab Q5M PRN SL CHEST PAIN; Start 12/24/16 at 21:30 Acetaminophen (Tylenol Tab) 650 mg Q6H PRN PO PAIN LEVEL 1-3 OR FEVER; Start at 21:30 Acetaminophen/ Hydrocodone Bitart ([place] (5/325)) 1 tab Q6H PRN PO PAIN LEVEL 4 -6 Last administered on 12/25/16 14:23; Admin Dose 1 TAB; Start 12/24/16 at 21:30 Acetaminophen/ Hydrocodone Bitart ([place] (5/325)) 2 tab Q6H PRN PO PAIN LEVEL 7 -10; Start 12/24/16 at 21:30 Aspirin (Halfprin) 81 mg DAILY PO Last administered on 12/28/16 09:20; Admin Dose 81 MG; Start 12/25/16 at 09:00 Clonidine (Catapres) 0.1 mg BID PO Last administered on 12/28/16 09:19; Admin Dose 0.1 MG; Start 12/24/16 at 21:30 Losartan Potassium (Cozaar) 50 mg DAILY PO Last administered on 12/28/16 09:20 ; Admin Dose 50 MG; Start 12/25/16 at 09:00 Docusate Sodium (Colace) 100 mg DAILY PRN PO CONSTIPATION Last administered on 12/25/16 10:44; Admin Dose 100 MG; Start 12/25/16 at 10:30 Polyethylene Glycol (Miralax) 17 gm DAILY PRN PO CONSTIPATION Last administered on 12/26/16 15:55; Admin Dose 17 GM; Start 12/25/16 at 12:00 Bisacodyl (Dulcolax Supp) 10 mg DAILY PRN [place] CONSTIPATION Last administered on 12/25/16 14:24; Admin Dose 10 MG; Start 12/25/16 at 13:00 Tramadol HCl (Ultram) 50 mg Q6H PRN GTB pain; Start 12/25/16 at 13:00 Atenolol (Tenormin) 25 mg DAILY PO Last administered on 12/28/16 09:20; Admin Dose 25 MG; Start 12/26/16 at 09:00 Fluticasone Propionate (Flonase 0.05% Nasal) 1 spray DAILY NASAL Last administered on 12/28/16 09:12; Admin Dose 1 SPRAY; Start 12/26/16 at 12:00 Zolpidem Tartrate (Ambien) 10 mg ONCE PRN PO INSOMNIA; Start 12/27/16 at 22:40 ; Stop 12/28/16 at 22:39 JOSE KEANE MD Dec 28, 2016 17:03
[2016-12-28] MEDS ORDERED: PROPOFOL 20 ML ONE (17:06)
--- NOTE | 2016-12-28 17:26 | DS ---
DATE OF ADMISSION: 12/24/2016 DATE OF DISCHARGE: 12/28/2016 CONSULTANTS: 1. Dr. Collin Garrett. 2. Dr. Zi Gaspar. 3. Dr. Dominique Whitley. PROCEDURE: Colonoscopy. DIAGNOSES: 1. Hyponatremia, likely chronic, likely secondary to meds. The patient was placed on fluid restric tion, hold triamterene and hydrochlorothiazide, was placed on Samsca. It is resolved. 2. Prerenal azotemia, resolved. 3. Gastrointestinal bleeding with positive guaiac. The patient was placed on Protonix status post colonoscopy. 4. Chronic pain with regular opioid use. No radiographic evidence of occult fracture on CAT scan. 5. Anemia, likely secondary to gastrointestinal bleed, chronic, positive stool guaiac. No requirem ent for blood transfusion. The patient was placed on ferrous sulfate. 6. Essential hypertension, well controlled on medical management. DISCHARGE MEDICATION: 1. Albuterol. 2. Aspirin. 3. Atenolol. 4. ____. 5. Colace. 6. Flonase. 7. Losartan. 8. Nitroglycerin. 9. MiraLax. 10. Sodium chloride. 11. Samsca which has been discontinued. 12. Aspirin. 13. Celebrex. 14. Clonidine 15. Vitamin D2. 16. [place]. 17. Protonix. 18. Gabapentin. ALLERGIES: NO KNOWN DRUG ALLERGIES. LABORATORY: WBC 6.5, hemoglobin 10.9, hematocrit 33.1, platelets 222. Sodium 133, potassium 4.2, c hloride 104, bicarbonate 22, BUN 23, creatinine 0.89, glucose 116. LFTs all within normal limits. Triglycerides 82, total cholesterol 213, LDL 127, HDL 87. HOSPITAL COURSE: This is an 86-year-old female who lives at home with past medical history of hyper tension, L1 compression fracture, osteoarthritis, hyponatremia, congestive heart failure, chronic pa in, morbid obesity, and asthma who was brought into the emergency room at [facility] via rescue EMS. She was home complaining of 3 week history of worsening, sharp, nonradiating lef t hip pain exacerbated by movement. The patient's pain is unrelieved by multiple analgesics includi ng [place]. Denies any new trauma. The patient denies having any chest pain or palpitations. The pa tient also does complain of having lower abdominal pain without any change in the color of stool. N o hematochezia. No melena. Upon evaluation, her guaiac stool was found to be positive. The patien t was found to be severely hyponatremic with sodium of 118. Nephrology was consulted. The patient was placed on 3% IV fluid and was transitioned to normal saline with sodium chloride orally and Angie ca. The patient's sodium has been improving gradually. On 12/26/2016, it was 124, on 12/27/2016, i t was 129, on 12/28/2016 it was 133. The patient also was seen and evaluated by senior process engineer secondary to having positive stool guaiac and has been prepped for colonoscopy and is status post co lonoscopy at this time. At this time, the patient denies having any chest pain, shortness of breath , nausea, vomiting, or diarrhea. Due to her generalized weakness, I have suggested the patient shou ld be transferred to longterm facility for further rehabilitation secondary to the patient's generalized weakness and her arthritis and for her pain management. At this time, the patient is me dically stable to be discharged to longterm facility with close followup with her primary car e doctor as outpatient status post longterm facility. DIET: Regular diet. ACTIVITY: With assistance. Dictated By: JOSE DANIEL SINGH/NTS Conf#: [id number] DID#: [id number]
[2016-12-28] MEDS ORDERED: FENTAnyl 50 MCG/ML VIAL IV PRN (18:00)
[2016-12-28] MEDS ORDERED: PANTOPRAZOLE (EC) 40 MG TAB PO ONE (18:00)
[2016-12-28] MEDS ORDERED: METOCLOPRAMIDE 10 MG INJ IV PRN (18:00)
[2016-12-28] MEDS ORDERED: ONDANSETRON 4 MG INJ IV PRN (18:00)
[2016-12-28] MEDS ORDERED: MIDAZOLAM 1 MG/ML 2 ML INJ IV PRN (18:00)
[2016-12-28] MEDS ORDERED: DIPHENHYDRAMINE 50 MG INJ IV PRN (18:00)
[2016-12-28] MEDS ORDERED: MEPERIDINE 25 MG INJ IV PRN (18:00)
--- NOTE | 2016-12-28 18:43 | GILP ---
DATE OF PROCEDURE: NAME OF PROCEDURE: Esophagogastroduodenoscopy with biopsies. SURGEON: Aisha Whitley MD HISTORY AND INDICATIONS: The patient is being evaluated for anemia, occult blood-positive stool. PREMEDICATION: Monitored anesthesia care by anesthesiologist. INSTRUMENT USED: Olympus panendoscope. TECHNIQUE: After informed consent with the patient/relatives understanding the procedure, its indica tions, potential risks and complications, including but not limited to allergic reaction, bleeding, perforation or infection, and after all pertinent questions were answered to the patients satisfacti on, the patient/relatives signed witnessed informed consent. Following this, premedication was administered slowly IV push under careful cardiovascular and respi ratory monitoring with pulse oximetry, automatic blood pressure and teletypesetter monitor. Once the sedative effect was achieved the patient was place in the left lateral decubitus, the panen doscope was introduced and advanced under visual control. Careful examination of the upper gastrointestinal tract both on insertion as well as withdrawal of t he instrument disclosed the following findings: ESOPHAGUS: The distal esophagus shows significant erythema and edema of the mucosa. Superficial er osion is also present. STOMACH: Upon entrance to the stomach, air was insufflated. There is significant erythema, edema a nd superficial erosion of the mucosa. Biopsies were obtained to rule out H. pylori infection. PYLORUS: The pylorus appears patent and within normal limits with no evidence of gastric outlet obs truction. DUODENUM: The duodenal mucosa was carefully examined in the duodenal bulb as well as the second por tion of the duodenum and appears unremarkable with no evidence of duodenitis, ulcer or neoplasm. The instrument was then withdrawn. The patient tolerated the procedure well and was transferred out of the endoscopy suite awake and in good condition to continue recovery under observation. IMPRESSION: 1. Erosive esophagitis, moderate. 2. Erosive gastritis, moderate, rule out Helicobacter pylori infection. Biopsies obtained. PLAN: The patient will be treated with PPIs. Further recommendation will depend on review of patho logy. Dictated By: AISHA WHITLEY MS/LAST Conf#: [id number] DID#: [id number]
--- NOTE | 2016-12-28 18:47 | GILP ---
DATE OF PROCEDURE: NAME OF PROCEDURE: Colonoscopy to cecum SURGEON: Aisha Whitley MD PREMEDICATION: Monitored anesthesia care by anesthesiologist. INSTRUMENT USED: Olympus colonoscope. PREPARATION: Adequate. TECHNIQUE: After informed consent with the patient/relatives understanding the procedure, its indic ations, potential risks and complications including but not limited to allergic reaction, bleeding, perforation, infection, missed lesions, and after all pertinent questions were answered to the patie nt's satisfaction, the patient/relatives signed the witnessed informed consent. Following this, premedication was administered slowly IV push by under careful cardiovascular and re spiratory monitoring with pulse oximetry, automatic blood pressure and environmental monitoring specialist. Once the sedativ e effect was achieved, the patient was placed in the left lateral decubitus position, digital rectal examination was performed. The colonoscope was then introduced and advanced under visual control th roughout all segments of the colon including: the rectum, sigmoid, descending colon, splenic flexure , transverse colon, hepatic flexure, ascending colon and finally reaching the cecum which was clearl y identified by transillumination, finger indentation and the ileocecal valve. Careful examination o f the mucosa of the lower gastrointestinal tract both on insertion as well as withdrawal of the inst rument disclosed the following findings: Rectal Examination: No evidence of perirectal disease, no masses. Colonic Mucosa: The colonic mucosa is unremarkable throughout. The ileocecal valve was clearly cassidy ntified and appears unremarkable. The instrument was withdrawn, re-examining the mucosa in detail. No additional abnormalities are noted with exception of moderate-sized internal hemorrhoids. The instrument was then withdrawn. The patient tolerated the procedure well and was transferred out of the endoscopy suite awake and in good condition to continue recovery under observation. IMPRESSION: 1. Normal colonic mucosa to cecum. 2. Moderate-sized internal hemorrhoids. PLAN: Advance diet as tolerated. The patient appears safe for outpatient management. Dictated By: AISHA WHITLEY MS/LAST Conf#: [id number] DID#: [id number]
[2016-12-29] VITALS (10 sets, daily range): BP systolic 81–130; BP diastolic 42–82; PULSE 64–74; RESP 16–19
[2016-12-29 07:38] LABS: ALBUMIN 3.6 g/dl (3.3-4.9)
[2016-12-29 07:39] LABS: POTASSIUM 3.9 mmol/L (3.5-5.1)
[2016-12-29 07:40] LABS: CREATININE 1.13 mg/dl (0.44-1.00)
[2016-12-29 07:41] LABS: ALBUMIN/GLOBULIN RATIO 1.16; BILIRUBIN,INDIRECT 0.5 mg/dl (0-1.1); BILIRUBIN,TOTAL 0.5 mg/dl (0.2-1.3); CALCIUM 9.2 mg/dl (8.4-10.2); TOTAL PROTEIN 6.7 g/dl (6.1-8.1)
[2016-12-29 07:42] LABS: MAGNESIUM 2.2 mg/dl (1.7-2.5)
[2016-12-29] MEDS: ALBUTEROL/IPRATROPIUM (NEB) 3 ML AMP HHN SCH ×2 (07:50→15:16)
[2016-12-29] MEDS: DOCUSATE SODIUM 100 MG CAP PO PRN (09:15)
[2016-12-29] MEDS: ASPIRIN (EC) 81 MG TAB PO SCH (09:15)
[2016-12-29] MEDS: ATENOLOL 25 MG TAB PO SCH (09:16)
[2016-12-29] MEDS: LOSARTAN 50 MG TAB PO SCH (09:16)
[2016-12-29] MEDS: FLUTICASONE 0.05% 16 GM NAS SPRAY NASAL SCH (09:17)
--- NOTE | 2016-12-29 15:11 | PN ---
Date/Time of Note Date/Time of Note DATE: 12/29/16 TIME: 15:02 Assessment/Plan VTE Prophylaxis VTE Prophylaxis Intervention: SCD's Lines/Catheters IV Catheter Type (from Nrsg): Peripheral IV Assessment/Plan Assessment/Plan ASSESSMENT * Abdominal pain improved * Anemia Hemoglobin 9.8 Iron deficiency vs chronic vs tumors * Constipation resolved * Colonoscopy 12/28/2016 * 1 Normal colonic mucosa to cecum. 2. Moderate-sized internal hemorrhoids. EGD 12/28/2016 * . Erosive esophagitis, moderate. 2. Erosive gastritis, moderate, rule out Helicobacter pylori infection. Biopsies obtained. Hyponatremia controlled defer to nephrology 12/26/2016 CT ABDOMEN/PELVIS 1. No evidence of bowel obstruction. No CT evidence of diverticulitis or appendicitis. 2. Small to moderate hiatal hernia. 3. Relatively decompressed left colon with retained gas and feces in the right colon. 4. Mild bilateral pelvocaliectasis and right extrarenal pelvis but no calcified renal calculi or obstructive uropathy. 5. Negative for intra-abdominal free air fluid abscesses or lymphadenopathy. 6. Extensive atherosclerotic vascular disease but no abdominal aortic aneurysm. 7. Cardiomegaly and coronary artery disease. 8. Chronic osseous findings as above. Hyponatremia controlled defer to nephrology 12/26/2016 CT ABDOMEN/PELVIS 1. No evidence of bowel obstruction. No CT evidence of diverticulitis or appendicitis. 2. Small to moderate hiatal hernia. 3. Relatively decompressed left colon with retained gas and feces in the right colon. 4. Mild bilateral pelvocaliectasis and right extrarenal pelvis but no calcified renal calculi or obstructive uropathy. 5. Negative for intra-abdominal free air fluid abscesses or lymphadenopathy. 6. Extensive atherosclerotic vascular disease but no abdominal aortic aneurysm. 7. Cardiomegaly and coronary artery disease. 8. Chronic osseous findings as above. Plan * stable for outpatient management * PPI for 2 weeks Subjective 24 Hr Interval Summary Free Text/Dictation * course reviewed with Nurse * Patient seen and examined * No abdominal pain * EGD 12/29/2015 * 1. Erosive esophagitis, moderate. 2. Erosive gastritis, moderate, rule out Helicobacter pylori infection. Biopsies obtained. * Colonoscopy * 1. Normal colonic mucosa to cecum. 2. Moderate-sized internal hemorrhoids. 12/28/2016 Exam/Review of Systems Vital Signs Vitals Vital Signs Date Time Temp Pulse Resp B/P Pulse Ox O2 Delivery O2 Flow Rate FiO2 12/29/16 12:10 68 12/29/16 12:00 98.0 16 81/42 96 12/29/16 07:50 21 12/28/16 18:28 Room Air 12/28/16 17:54 2.0 Intake and Output 12/28/16 12/28/16 12/29/16 15:00 23:00 07:00 Intake Total 80 ml Balance 80 ml Exam Constitutional: alert, oriented Gastrointestinal: non-tender, soft Musculoskeletal: nl extremities to inspection, nl gait and stance Results Result Diagram: 12/28/16 0655 12/29/16 0646 Results 24 hrs Laboratory Tests Test 12/29/16 06:46 Sodium Level 136 Potassium Level 3.9 Chloride Level 101 Carbon Dioxide Level 24 Anion Gap 15 Blood Urea Nitrogen 28 H Creatinine 1.13 H Glucose Level 104 Calcium Level 9.2 Magnesium Level 2.2 Total Bilirubin 0.5 Direct Bilirubin 0.00 Indirect Bilirubin 0.5 Aspartate Amino Transf (AST/SGOT) 21 Alanine Aminotransferase (ALT/SGPT) 18 Alkaline Phosphatase 54 Total Protein 6.7 Albumin 3.6 Globulin 3.10 Albumin/Globulin Ratio 1.16 Medications Medications Current Medications Nitroglycerin (Nitroglycerin (Sl Tab) 0.4 Mg) 1 tab Q5M PRN SL CHEST PAIN; Start 12/24/16 at 21:30 Acetaminophen (Tylenol Tab) 650 mg Q6H PRN PO PAIN LEVEL 1-3 OR FEVER Last administered on 12/29/16 09:15; Admin Dose 650 MG; Start 12/24/16 at 21:30 Acetaminophen/ Hydrocodone Bitart ([place] (5/325)) 1 tab Q6H PRN PO PAIN LEVEL 4 -6 Last administered on 12/25/16 14:23; Admin Dose 1 TAB; Start 12/24/16 at 21:30 Acetaminophen/ Hydrocodone Bitart ([place] (5/325)) 2 tab Q6H PRN PO PAIN LEVEL 7 -10; Start 12/24/16 at 21:30 Aspirin (Halfprin) 81 mg DAILY PO Last administered on 12/29/16 09:15; Admin Dose 81 MG; Start 12/25/16 at 09:00 Clonidine (Catapres) 0.1 mg BID PO Last administered on 12/29/16 09:16; Admin Dose 0.1 MG; Start 12/24/16 at 21:30 Losartan Potassium (Cozaar) 50 mg DAILY PO Last administered on 12/29/16 09:16 ; Admin Dose 50 MG; Start 12/25/16 at 09:00 Docusate Sodium (Colace) 100 mg DAILY PRN PO CONSTIPATION Last administered on 12/29/16 09:15; Admin Dose 100 MG; Start 12/25/16 at 10:30 Polyethylene Glycol (Miralax) 17 gm DAILY PRN PO CONSTIPATION Last administered on 12/26/16 15:55; Admin Dose 17 GM; Start 12/25/16 at 12:00 Bisacodyl (Dulcolax Supp) 10 mg DAILY PRN AL CONSTIPATION Last administered on 12/25/16 14:24; Admin Dose 10 MG; Start 12/25/16 at 13:00 Tramadol HCl (Ultram) 50 mg Q6H PRN GTB pain; Start 12/25/16 at 13:00 Atenolol (Tenormin) 25 mg DAILY PO Last administered on 12/29/16 09:16; Admin Dose 25 MG; Start 12/26/16 at 09:00 Fluticasone Propionate (Flonase 0.05% Nasal) 1 spray DAILY NASAL Last administered on 12/29/16 09:17; Admin Dose 1 SPRAY; Start 12/26/16 at 12:00 AISHA CINTRON MD Dec 29, 2016 15:10
--- NOTE | 2016-12-29 15:59 | PN ---
Date/Time of Note Date/Time of Note DATE: 12/29/16 TIME: 15:57 Assessment/Plan VTE Prophylaxis VTE Prophylaxis Intervention: SCD's Lines/Catheters IV Catheter Type (from Nrsg): Peripheral IV Assessment/Plan Chief Complaint/Hosp Course Assessment/Plan 1) Hyponatremia, likely chronic, likely secondary to meds Has been placed on fluid Restriction to 1500 cc/day Continue to hold Triamterene/HCTZ (home medication) Nephrology has been consulted, status post sodium chloride tablets and Samsca . Follow with nephrology as outpatient 2) Pre-renal Azotemia, Resolved 3) gastrointestinal bleeding, with positive stool guaiac Heart Nurse has been consulted, status post colonoscopy 4) Chronic Pain with regular Opioid use, Hydrocodone-APAP 5-325 BID at home. No radiographic evidence of occult fracture on CAT scan. No signs of an occult malignancy or osteomyelitis. Chronic back pain without neurologic symptoms, urinary disruption, signs of cauda equina or spinal epidural abscess. Or evidence of cauda equina. 5) Anemia, Normochromic, Normocytic, Chronic. Normal RDW. 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 Notation patient has refused to be transferred to longterm facility Problems: Subjective 24 Hr Interval Summary Free Text/Dictation Patient denies any chest pain or shortness of breath Patient and her family has refused her to be transferred to longterm facility They would like to take the patient home with home health I have explained risks of fall with the family and they are adamant that patient wants to be discharged home Patient will have 3 family member who can after Exam/Review of Systems Vital Signs Vitals Vital Signs Date Time Temp Pulse Resp B/P Pulse Ox O2 Delivery O2 Flow Rate FiO2 12/29/16 15:18 83 16 98 21 12/29/16 12:00 98.0 81/42 12/28/16 18:28 Room Air 12/28/16 17:54 2.0 Intake and Output 12/28/16 12/28/16 12/29/16 15:00 23:00 07:00 Intake Total 80 ml Balance 80 ml Exam General: The patient is moderately overweight, Not in acute distress. HEENT: Atraumatic, normocephalic. The pupils are equal and round . Neck: Supple with full range of motion. Chest: Normal expansion of the thorax during inspiration Lungs: Clear to auscultation bilaterally Heart: Normal S1-S2, Regular rhythm and rate. Abdomen: Soft , nontender, nondistended , bowel sounds are present. Extremities: Normal to inspection, no edema no cyanosis Neurologic: Normal mental status,The patient is awake, alert and oriented . Results Result Diagram: 12/28/16 0655 12/29/16 0646 Results 24 hrs Laboratory Tests Test 12/29/16 06:46 Sodium Level 136 Potassium Level 3.9 Chloride Level 101 Carbon Dioxide Level 24 Anion Gap 15 Blood Urea Nitrogen 28 H Creatinine 1.13 H Glucose Level 104 Calcium Level 9.2 Magnesium Level 2.2 Total Bilirubin 0.5 Direct Bilirubin 0.00 Indirect Bilirubin 0.5 Aspartate Amino Transf (AST/SGOT) 21 Alanine Aminotransferase (ALT/SGPT) 18 Alkaline Phosphatase 54 Total Protein 6.7 Albumin 3.6 Globulin 3.10 Albumin/Globulin Ratio 1.16 Medications Medications Current Medications Nitroglycerin (Nitroglycerin (Sl Tab) 0.4 Mg) 1 tab Q5M PRN SL CHEST PAIN; Start 12/24/16 at 21:30 Acetaminophen (Tylenol Tab) 650 mg Q6H PRN PO PAIN LEVEL 1-3 OR FEVER Last administered on 12/29/16 09:15; Admin Dose 650 MG; Start 12/24/16 at 21:30 Acetaminophen/ Hydrocodone Bitart ([place] (5/325)) 1 tab Q6H PRN PO PAIN LEVEL 4 -6 Last administered on 12/25/16 14:23; Admin Dose 1 TAB; Start 12/24/16 at 21:30 Acetaminophen/ Hydrocodone Bitart ([place] (5/325)) 2 tab Q6H PRN PO PAIN LEVEL 7 -10; Start 12/24/16 at 21:30 Aspirin (Halfprin) 81 mg DAILY PO Last administered on 12/29/16 09:15; Admin Dose 81 MG; Start 12/25/16 at 09:00 Clonidine (Catapres) 0.1 mg BID PO Last administered on 12/29/16 09:16; Admin Dose 0.1 MG; Start 12/24/16 at 21:30 Losartan Potassium (Cozaar) 50 mg DAILY PO Last administered on 12/29/16 09:16 ; Admin Dose 50 MG; Start 12/25/16 at 09:00 Docusate Sodium (Colace) 100 mg DAILY PRN PO CONSTIPATION Last administered on 12/29/16 09:15; Admin Dose 100 MG; Start 12/25/16 at 10:30 Polyethylene Glycol (Miralax) 17 gm DAILY PRN PO CONSTIPATION Last administered on 12/26/16 15:55; Admin Dose 17 GM; Start 12/25/16 at 12:00 Bisacodyl (Dulcolax Supp) 10 mg DAILY PRN AL CONSTIPATION Last administered on 12/25/16 14:24; Admin Dose 10 MG; Start 12/25/16 at 13:00 Tramadol HCl (Ultram) 50 mg Q6H PRN GTB pain; Start 12/25/16 at 13:00 Atenolol (Tenormin) 25 mg DAILY PO Last administered on 12/29/16 09:16; Admin Dose 25 MG; Start 12/26/16 at 09:00 Fluticasone Propionate (Flonase 0.05% Nasal) 1 spray DAILY NASAL Last administered on 12/29/16 09:17; Admin Dose 1 SPRAY; Start 12/26/16 at 12:00 JOSE DANIEL PADILLA MD Dec 29, 2016 15:59
== END 2016-12-29 17:05 | disposition home or self-care (01) | DRG 641 ==
LOC: E/R 18:04 → TEL 21:29
PROVIDERS: ADMIT Family Medicine; ATTEND Family Medicine
PROC: 0DB68ZX Excision of Stomach, Via Natural or Artificial Opening Endoscopic, Diagnostic (ICD-10-PCS; principal; 2016-12-28 18:00)
PROC: 0DJD8ZZ Inspection of Lower Intestinal Tract, Via Natural or Artificial Opening Endoscopic (ICD-10-PCS; 2016-12-28 18:00)
DX: E87.1 Hypo-osmolality and hyponatremia (principal); K92.2 Gastrointestinal hemorrhage, unspecified; I11.0 Hypertensive heart disease with heart failure; I50.9 Heart failure, unspecified; K22.10 Ulcer of esophagus without bleeding; K29.60 Other gastritis without bleeding; K59.09 Other constipation; K64.8 Other hemorrhoids; K44.9 Diaphragmatic hernia without obstruction or gangrene; D50.0 Iron deficiency anemia secondary to blood loss (chronic); D64.9 Anemia, unspecified; G89.29 Other chronic pain; M25.552 Pain in left hip; N39.9 Disorder of urinary system, unspecified; M16.12 Unilateral primary osteoarthritis, left hip; M48.56XD Collapsed vertebra, not elsewhere classified, lumbar region, subsequent encounter for fracture with routine healing; R19.5 Other fecal abnormalities; R79.89 Other specified abnormal findings of blood chemistry; Z87.81 Personal history of (healed) traumatic fracture; Z79.82 Long term (current) use of aspirin
CPT/HCPCS: 71010; 73700; 74000; 74010; 74177; 80048; 80051; 80053; 80061; 81001; 81003; 82270; 83735; 83930; 83935; 84134; 84295; 84300; 84443; 84560; 85025; 88305; 88312; 93005; 94640; 94664; 96374; 96375; 97110; 97116; 97162; 97530; J1940; A4310; J2060; J2270; J2405; Q9967